=== PATIENT | female | born 1955 | race Caucasian/White ===

== ENCOUNTER 2020-04-22 09:28 | Outpatient (CLI) | payer OTHER, SELFPAY ==
--- NOTE | ~2020-04-22 | MM_ITS ---
EXAMINATION: MM screening scott BI w birgit HISTORY: Screening mammogram, family history of breast cancer in her sister. TECHNIQUE: Craniocaudal and mediolateral oblique 3-D tomosynthesis images were obtained and synthetic 2-D images were generated. CAD analysis was submitted and interpreted. COMPARISON: 03/23/2019, 07/29/2016, 07/16/2015 BREAST PARENCHYMAL COMPOSITION: The breasts are heterogeneously dense, which may obscure small masses . FINDINGS: There is no evidence of suspicious mass, calcification, or architectural distortion to sugg est malignancy in either breast. There has been no suspicious interval change. IMPRESSION: 1. No mammographic evidence of malignancy. 2. Recommend routine screening mammography in one year. BI-RADS Category 1: Negative Reviewed, dictated and finalized at location A. AS SHRINKER
== END 2020-04-22 09:29 | disposition home or self-care (01) ==
LOC: ANHIMG 09:33
PROVIDERS: PCP Internal Medicine; Visit Provider Internal Medicine
DX: Z12.31 Encounter for screening mammogram for malignant neoplasm of breast (principal)
CPT/HCPCS: 77063; 77067

== ENCOUNTER 2020-07-01 10:11 | Outpatient (CLI) | payer OTHER, SELFPAY ==
--- NOTE | ~2020-07-01 | DEXA_ITS ---
Bone Density Report Name: Maria Luz Sims Age: 65 Sex: Female Ethnicity: White Date of : 1955 Indication: postmenopausal; history of glucocorticoids; prior fracture; asthma or emphysema; Referring Provider: JASSI GUDINO Study: Bone densitometry was performed. Exam Date: July 01, 2020 Accession number: [id number] Bone Density: Region BMD T-score Z-score Classification AP Spine (L1-L4) 0.880 -1.5 0.4 Osteopenia Femoral Neck (Left) 0.716 -1.2 0.4 Osteopenia Total Hip (Left) 0.830 -0.9 0.4 Normal Total Hip Bilateral Avg 0.858 -0.7 0.6 Normal Femoral Neck (Right) 0.783 -0.6 1.0 Normal Total Hip (Right) 0.885 -0.5 0.9 Normal World Health Organization criteria for BMD impression classify patients as: Normal (T-score at or above -1.0), Osteopenia (T-score between -1.0 and -2.5), or Osteoporosis (T-score at or below -2.5). 10-year Fracture Risk: FRAX not reported because: Treated for osteoporosis Clinical Information Provided by Patient: Has had a low trauma fracture Smokes Has taken Glucocorticoids Is being treated for osteoporosis Has used the following medications: Annelise (i.e. ibandronate) Has the following medical conditions: Asthma or Emphysema Patient maximum height was 63 Menopause Age: 48 Drinks caffeinated beverages Onset of menses at age 11 Number of children 1 Impression: The patient has low bone mass, based on the Total Spine T-score. The patient has risk factors, including: smoking, previous fracture, history of glucocorticoid therapy. Discussion: It is important to ask patients whether they are taking their medications and to encourage continued and appropriate compliance with their osteoporosis therapies to reduce fracture risk. It is also important to review their risk factors and encourage appropriate calcium and vitamin D intakes, exercise, fall prevention and other lifestyle measures. Follow-Up: Consider a repeat BMD and Vertebral Fracture Assessment (VFA) exam in 2 years or sooner if medically necessary, to reassess this patient's status. Reported by: LISA on 07/01/2020 10:23:00 AM. Reviewed, dictated and finalized at location ALorraine KUMAR
== END 2020-07-01 10:12 | disposition home or self-care (01) ==
LOC: ANHIMG 10:11
PROVIDERS: PCP Internal Medicine; Visit Provider Internal Medicine
DX: Z78.0 Asymptomatic menopausal state (principal); M85.88 Other specified disorders of bone density and structure, other site; M85.852 Other specified disorders of bone density and structure, left thigh
CPT/HCPCS: 77080

== ENCOUNTER 2021-02-19 08:50 | Emergency (ER) | payer OTHER, SELFPAY ==
--- NOTE | ~2021-02-19 | XR_ITS ---
EXAMINATION: XR hand LT min 3V EXAM DATE: 02/19/2021 09:16 INDICATION: No known recent injury. Pain of the palm. TECHNIQUE: Left hand frontal, lateral and oblique projections obtained and reviewed. There is no luis or study for comparison. FINDINGS: Left metacarpal bones are unremarkable. No periosteal reaction or band of sclerosis to sug gest subacute fracture. There are no acute fractures or dislocations identified. There is no subcut aneous gas. The soft tissue is unremarkable. There are no radiopaque foreign bodies. Minimal poly articular osteoarthritis at the interphalangeal joints. 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 Reviewed, dictated and finalized at location B.
[2021-02-19 09:02] VITALS: BP 132/68; PULSE 92; RESP 16; TEMP 36.4; O2SAT 96
[2021-02-19] MEDS: KETOROLAC 30 MG/ML VIAL (*BKC) IM (09:59)
--- NOTE | 2021-02-19 10:16 | ED.GENADULT ---
HPI - General Adult General Chief complaint: Extremity Problem,Nontraumatic Stated complaint: hand pain Time Seen by Provider: 02/19/21 09:11 Source: patient Mode of arrival: ambulatory Limitations: no limitations History of Present Illness HPI narrative: Patient presents with increasing worsening pain at the base of her left hand that shoots up her wrist to her elbow. Patient reports that she saw her primary care last week regarding her discomfort and was told to wear a wrist splint and brace. Patient has not noted improvement. Patient reports that the pain wakes her up in her sleep. She denies any known injuries. She states she is prone to having trigger fingers and notes that she has arthritis in the hands as well. Patient took Motrin yesterday for the pain but has not taken anything consistently. Patient denies history of diabetes, GI bleeds or ulcers, or renal insufficiency. Related Data Home Medications Medication Instructions Recorded Confirmed omeprazole 20 mg capsule,delayed 20 mg PO DAILY 06/07/19 01/29/21 release Allergies Allergy/AdvReac Type Severity Reaction Status Date / Time No Known Allergies Allergy Verified 02/19/21 09:04 Review of Systems Review of Systems: CONSTITUTIONAL: Denies fever, chills, or sweats. EYES: Denies visual changes, redness, or discharge. ENT: Denies rhinorrhea, congestion, sore throat, or otalgia. CARDIOVASCULAR: Denies chest pain, palpitations, or edema. RESPIRATORY: Denies cough or dyspnea. GASTROINTESTINAL: Denies abdominal pain, nausea, vomiting, or diarrhea. GENITOURINARY: Denies dysuria or hematuria. SKIN: Denies rash or itching. MUSCULOSKELETAL: Reports left arm pain denies back pain, joint pain, or myalgia. NEUROLOGIC: Denies headache, numbness, dizziness, or weakness. PSYCHIATRIC: Denies anxiety or depression. [facility] Past Medical History Medical History (Updated 02/19/21 @ 10:22 by Vahid Cuello PA-C) Chronic hepatitis C without hepatic coma Vasomotor rhinitis Family History Family History Sibling Family history of liver disease Social History Social History Social History: She has returned to smoking with the recent of her . She has over a 40 pack smoking history Smoking packs per day: 0.5 Smoking cigarettes per day: 10.0 Years smoked: 40 Smoking pack-years: 20.00 Tobacco type: cigarettes (1 pack lasts a day) Second hand tobacco smoke exposure: No Alcohol intake: current Exam Narrative: GENERAL: Well-appearing, well-nourished, and in no acute distress. HEAD: Normocephalic, atraumatic. EYES: PERRLA and EOMI. ENT: Nares clear, no rhinorrhea or epistaxis. Mucous membranes moist. Oropharynx without tonsillar hypertrophy exudate or other lesions. Bilateral TMs pearly lay nonbulging NECK: Supple. No adenopathy or masses. No carotid bruits or JVD CHEST: Clear to auscultation. No respiratory distress. No wheezes rales or rhonchi HEART: Regular rate and rhythm. No murmur heard. Normal peripheral pulses. ABDOMEN: Soft, nontender, nondistended, normal active bowel sounds. EXTREMITIES: Positive Tinel's and Phalen's test. Decreased flexion and extension of digits due to pain No edema, erythema or outward signs of injury SKIN: Warm, dry, no rash. NEURO: No focal deficits. Alert and oriented x3. PSYCH: Normal mood and affect. Course Vital Signs Vital signs: Vital Signs Temperature 97.6 F 02/19/21 09:02 Pulse Rate 92 02/19/21 09:02 Respiratory Rate 16 02/19/21 09:02 Blood Pressure 132/68 02/19/21 09:02 Pulse Oximetry 96 02/19/21 09:02 Temperature 97.6 F 02/19/21 09:02 Pulse Rate 92 02/19/21 09:02 Respiratory Rate 16 02/19/21 09:02 Blood Pressure 132/68 02/19/21 09:02 Pulse Oximetry 96 02/19/21 09:02 Medical Decision Making MDM Narrative Medical decision making na
== END 2021-02-19 10:33 | disposition home or self-care (01) ==
PROVIDERS: Emergency Provider Emergency Medicine; PCP Internal Medicine
DX: M77.8 Other enthesopathies, not elsewhere classified (principal); B18.2 Chronic viral hepatitis C; F17.210 Nicotine dependence, cigarettes, uncomplicated
CPT/HCPCS: 73130; 96372; 99283; J1885

== ENCOUNTER 2021-06-17 09:33 | Outpatient (CLI) | payer OTHER, SELFPAY ==
--- NOTE | ~2021-06-17 | MM_ITS ---
EXAMINATION: MM screening scott BI w birgit HISTORY: Screening TECHNIQUE: Craniocaudal and mediolateral oblique 3-D tomosynthesis images were obtained and synthetic 2-D images were generated. CAD analysis was submitted and interpreted. COMPARISON: No prior mammogram is available for comparison at this institution. BREAST PARENCHYMAL COMPOSITION: Comparison to multiple prior studies sequentially, with oldest review ed study dated 06/12/2014. FINDINGS: There is no evidence of suspicious mass, calcification, or architectural distortion to sugg est malignancy in either breast. There has been no suspicious interval change. IMPRESSION: 1. No mammographic evidence of malignancy. 2. Recommend routine screening mammography in one year. BI-RADS Category 1: Negative Reviewed, dictated and finalized at location A. GER VALIDATION
== END 2021-06-17 09:34 | disposition home or self-care (01) ==
LOC: ANHIMG 09:35
PROVIDERS: PCP Internal Medicine; Visit Provider Internal Medicine
DX: Z12.31 Encounter for screening mammogram for malignant neoplasm of breast (principal)
CPT/HCPCS: 77063; 77067

== ENCOUNTER 2022-06-17 09:49 | Outpatient (CLI) | payer MEDICARE, SELFPAY ==
--- NOTE | 2022-06-17 11:00 | NEURO_ITS ---
Impression: # Complains of numbness of hands. # Right sensory Carpal Tunnel Syndrome. # No ulnar neuropathy. # Normal needle/EMG exam. Motor Nerve Conduction Upper Extremities Median Nerve Conduction Velocity (m/sec) Terminal Latency (msec) Response Voltage(mV) Elbow-Wrist Wrist Elbow Wrist Right 61 3.0 4 3 Left 62 3.6 5 6 Ulnar Nerve Conduction Velocity (m/sec) Terminal Latency (msec) Response Voltage(mV) Above Elbow Below Elbow Wrist Above Elbow Below Elbow Wrist Right 60 2.4 6 5 Left 61 2.5 7 9 F-Wave Latency Median (ms) Ulnar (ms) Right 26.2 25.4 Left 26.0 25.9 Sensory Nerve Conduction Upper Extremities Median Nerve Stimulation Terminal Latency (msec) Wrist/Digit Response Voltage (uV) Wrist Right 5.2/5.0 41/44 Left 3.2/3.2 38/52 Ulnar Nerve Stimulation Terminal Latency (msec) Wrist/Digit Response Voltage (uV) Wrist Right 2.1 70 Left 2.2 50 Radial Nerve Terminal Latency (msec) Response Voltage(mV) Right 1.9 30 Left 2.0 26 Left Right Muscles Examined Fibrillation Fasciculation Scarcity Voltage Duration Left Right Left Right Left Right Left Right Left Right Deltoid Biceps X X Brachioradialis Triceps X X Pronator Teres X X Ext Indicis X X Ext Digitorum X X Abd Poll Brev X X 1st Dorsal Interosseus Paraspinals MTDD
== END 2022-06-17 09:50 | disposition home or self-care (01) ==
LOC: ANHNEURO 09:49
PROVIDERS: PCP Internal Medicine; Visit Provider Family Medicine
DX: R20.2 Paresthesia of skin (principal); G56.01 Carpal tunnel syndrome, right upper limb
CPT/HCPCS: 95886; 95911

== ENCOUNTER 2022-07-28 15:40 | Outpatient (CLI) | payer MEDICARE, SELFPAY ==
--- NOTE | ~2022-07-28 | MM_ITS ---
EXAMINATION: MM screening scott BI w birgit HISTORY: Screening mammogram TECHNIQUE: Craniocaudal and mediolateral oblique 3-D tomosynthesis images were obtained and synthetic 2-D images were generated. CAD analysis was submitted and interpreted. COMPARISON: 06/17/2021, 04/22/2020, 03/13/2019 bilateral screening mammogram examinations BREAST PARENCHYMAL COMPOSITION: The breasts are heterogeneously dense, which may obscure small masses . FINDINGS: There is no evidence of suspicious mass, calcification, or architectural distortion to sugg est malignancy in either breast. There has been no suspicious interval change. IMPRESSION: 1. No mammographic evidence of malignancy. 2. Recommend routine screening mammography in one year. BI-RADS Category 1: Negative Reviewed, dictated and finalized at location A. REPAIRMAN
== END 2022-07-28 15:41 | disposition home or self-care (01) ==
LOC: ANHIMG 15:43
PROVIDERS: PCP Family Medicine; Visit Provider Family Medicine
DX: Z12.31 Encounter for screening mammogram for malignant neoplasm of breast (principal)
CPT/HCPCS: 77063; 77067

== ENCOUNTER 2023-02-15 13:43 | Outpatient (CLI) | payer MEDICARE, SELFPAY ==
--- NOTE | ~2023-02-15 | CT_ITS ---
CT Scan of the Chest without Contrast: Clinical Indication: Lung cancer screening, smoking history Technique: Contiguous sections were acquired throughout the chest without intravenous contrast. Dose reduction technique was used on this scan by utilizing automated exposure control and iterative recon struction technique. The dose-length product (DLP) was 108.26 mGy-cm. COMPARISON: 07/28/2017 Findings: There is no evidence of any significant mediastinal, hilar or axillary lymphadenopathy. There are ath erosclerotic calcifications of the aorta and coronary arteries. There is no evidence of pleural or pericardial effusion. There is a 1.2 cm left lower lobe pulmonary nodule (axial image 83). There is minimal subpleural reti culation in the lungs. Images through the upper abdomen reveal no abnormalities. Impression: Lung RADS 4A: Suspicious. Recommend either 3 month follow-up screening CT or PET/CT to further evalua te the 1.2 cm left lower lobe pulmonary nodule. Reviewed, dictated and finalized at [facility]. Impression: Lung RADS 4A: Suspicious. Recommend either 3 month follow-up screening CT or PE T/CT to further evaluate the 1.2 cm left lower lobe pulmonary nodule.
== END 2023-02-15 13:44 | disposition home or self-care (01) ==
PROVIDERS: PCP Family Medicine; Visit Provider Family Medicine
DX: Z12.2 Encounter for screening for malignant neoplasm of respiratory organs (principal); Z87.891 Personal history of nicotine dependence; R91.8 Other nonspecific abnormal finding of lung field
CPT/HCPCS: 71271

== ENCOUNTER 2023-03-22 08:35 | Outpatient (CLI) | payer MEDICARE, SELFPAY ==
--- NOTE | ~2023-03-22 | DEXA_ITS ---
Bone Density Report Name: KIRK CHEUNG Age: 67 Sex: Female Ethnicity: White Date of : 1955 Indication: osteopenia; monitoring treatment; prior fracture; asthma or emphysema; rheumatoid arthritis; postmenopausal Referring Provider: PAMELA, DAVID Study: Bone densitometry was performed. Exam Date: March 22, 2023 Accession number: [id number] Bone Density: Region BMD T-score Z-score Classification AP Spine(L1-L4) 0.926 -1.1 1.0 Osteopenia Femoral Neck (Left) 0.698 -1.4 0.4 Osteopenia Total Hip (Left) 0.843 -0.8 0.7 Normal Femoral Neck (Right) 0.760 -0.8 1.0 Normal Total Hip (Right) 0.868 -0.6 0.9 Normal Total Hip Mean 0.855 -0.7 0.8 Normal World Health Organization criteria for BMD impression classify patients as: Normal (T-score at or above -1.0), Osteopenia (T-score between -1.0 and -2.5), or Osteoporosis (T-score at or below -2.5). 10-year Fracture Risk: FRAX not reported because: Treated for osteoporosis Previous Exams: Region Exam Age BMD T-score BMD Change BMD Change Date g/cm2 vs Baseline vs Previous AP Spine (L1-L4) 03/22/2023 67 0.926 -1.1 0.046 (5.3%)# 0.046 (5.3%)# 07/01/2020 65 0.880 -1.5 Total Hip(Left) 03/22/2023 67 0.843 -0.8 0.013 (1.6%)# 0.013 (1.6%)# 07/01/2020 65 0.830 -0.9 Total Hip(Right) 03/22/2023 67 0.868 -0.6 -0.018 (-2.0%) -0.018 (-2.0%) 07/01/2020 65 0.885 -0.5 *Denotes significance at 95% confidence level, LSC for AP Spine = 0.022 g/cm2, LSC for Total Hip = 0.027 g/cm2 # Denotes dissimilar scan types or analysis methods Clinical Information Provided by Patient: Has had a low trauma fracture Has rheumatoid arthritis Is being treated for osteoporosis Has used the following medications: Boniva (i.e. ibandronate), Vitamin D Has the following medical conditions: Asthma or Emphysema Patient maximum height was 63 Menopause Age: 48 No regular weight bearing exercise Onset of menses at age 11 Number of children 1 Impression: The patient has low bone mass, based on the Left Femoral Neck T-score. The patient has risk factors, including: previous fracture. No significant bone loss was observed. Discussion: PATIENT UNDER TREATMENT WITH NO SIGNIFICANT BMD LOSS SINCE LAST EXAM. In an untreated patient, BMD typically declines with age. A lack of decline or gain is usually a sign that treatment is efficacious and fracture risk is reduced. It is important to ask patients whethe
== END 2023-03-22 08:36 | disposition home or self-care (01) ==
PROVIDERS: PCP Family Medicine; Visit Provider Nurse Practitioner Family
DX: M81.0 Age-related osteoporosis without current pathological fracture (principal); M85.88 Other specified disorders of bone density and structure, other site; M85.852 Other specified disorders of bone density and structure, left thigh
CPT/HCPCS: 77080

== ENCOUNTER 2023-05-13 07:09 | Outpatient (CLI) | payer MEDICARE, SELFPAY ==
--- NOTE | ~2023-05-13 | CT_ITS ---
CT Scan of the Chest without Contrast: Clinical Indication: Lung mass Technique: Contiguous sections were acquired throughout the chest without intravenous contrast. Dose reduction technique was used on this scan by utilizing automated exposure control and iterative recon struction technique. The dose-length product (DLP) was 215.17 mGy-cm. COMPARISON: 02/15/2023 Findings: There is no evidence of any significant mediastinal, hilar or axillary lymphadenopathy. There are ath erosclerotic calcifications of the aorta and coronary arteries. There is no evidence of pleural or pericardial effusion. There is mild diffuse subpleural reticulation. 1 cm left lower lobe pulmonary nodule is similar to pr ior exam (axial image 83). Images through the upper abdomen reveal no abnormalities. Impression: 1 cm left lower lobe pulmonary nodules unchanged from prior exam. Continued follow-up advised. Mild diffuse subpleural reticulation. Reviewed, dictated and finalized at [facility]. GER FIXER Impression: 1 cm left lower lobe pulmonary nodules unchanged from prior exam. Continued fol low-up advised. Mild diffuse subpleural reticulation.
== END 2023-05-13 07:10 | disposition home or self-care (01) ==
LOC: ANHIMG 07:13
PROVIDERS: PCP Family Medicine; Visit Provider Family Medicine
DX: R91.8 Other nonspecific abnormal finding of lung field (principal)
CPT/HCPCS: 71250

== ENCOUNTER 2023-12-13 09:40 | Outpatient (CLI) | payer MEDICARE, SELFPAY ==
--- NOTE | ~2023-12-13 | MM_ITS ---
EXAMINATION: MM screening scott BI w birgit HISTORY: Screening TECHNIQUE: Craniocaudal and mediolateral oblique 3-D tomosynthesis images were obtained and synthetic 2-D images were generated. CAD analysis was submitted and interpreted. COMPARISON: Comparison to multiple prior studies sequentially, with oldest reviewed study dated 07/16. BREAST PARENCHYMAL COMPOSITION: Dense: The breasts are heterogeneously dense, which may obscure small masses FINDINGS: The left breast is stable without evidence for malignancy. There are developing asymmetries centered in the upper outer quadrant of the right breast. There are no suspicious calcifications. IMPRESSION: 1. Developing asymmetries centered upper outer quadrant of the right breast, middle third. 2. Additional mammographic views and possible breast ultrasound are recommended. BI-RADS Category 0: Incomplete: Needs additional imaging evaluation. Reviewed, dictated and finalized at location B. IMPRESSION: 1. Developing asymmetries centered upper outer quadrant of the right breast, mi ddle third. 2. Additional mammographic views and possible breast ultrasound are recommended . BI-RADS Category 0: Incomplete: Needs additional imaging evaluation.
== END 2023-12-13 09:41 | disposition home or self-care (01) ==
LOC: ANHIMG 09:41
PROVIDERS: PCP Family Medicine; Visit Provider Family Medicine
DX: Z12.31 Encounter for screening mammogram for malignant neoplasm of breast (principal); R92.8 Other abnormal and inconclusive findings on diagnostic imaging of breast
CPT/HCPCS: 77063; 77067

== ENCOUNTER 2023-12-27 12:58 | Outpatient (CLI) | payer MEDICARE, SELFPAY ==
--- NOTE | ~2023-12-27 | MMUS_ITS ---
EXAMINATION: MM diagnostic scott RT w birgit, US breast RT complete HISTORY: Follow-up right breast asymmetry TECHNIQUE: Additional 3-D tomosynthesis images of the right breast were performed and synthetic 2-D i mages were generated. CAD analysis was submitted and interpreted. High resolution complete right valeria st ultrasound was performed. COMPARISON: Comparison to multiple prior studies sequentially, with oldest reviewed study dated 07/29. BREAST PARENCHYMAL COMPOSITION: Dense: The breasts are heterogeneously dense, which may obscure small masses FINDINGS: MAMMOGRAPHIC FINDINGS: There are no suspicious masses, calcifications or architectural distortion in the right breast to sug gest malignancy. ULTRASOUND: Complete US of all 4 quadrants of the right breast and retroareolar region was reviewed. Normal heter ogeneous echotexture without focal solid or cystic mass. IMPRESSION: 1. No evidence for malignancy in the right breast. 2. Routine yearly screening mammogram and regular clinical breast examination are recommended. BI-RADS Category 1: Negative Reviewed, dictated and finalized at location B. IMPRESSION: 1. No evidence for malignancy in the right breast. 2. Routine yearly screening mammogram and regular clinical breast examination a re recommended. BI-RADS Category 1: Negative
== END 2023-12-27 12:59 | disposition home or self-care (01) ==
LOC: ANHIMG 13:09
PROVIDERS: PCP Family Medicine
DX: R92.8 Other abnormal and inconclusive findings on diagnostic imaging of breast (principal)
CPT/HCPCS: 76641; 77061; 77065; G0279

== ENCOUNTER 2024-05-18 07:04 | Outpatient (CLI) | payer MEDICARE, SELFPAY ==
--- NOTE | ~2024-05-18 | MR_ITS ---
EXAMINATION: MR brain/brain stem wo con DATE: 05/18/2024 07:46 INDICATION: Memory loss and gait disorder TECHNIQUE: Magnetic resonance imaging (MRI) of the brain and brainstem was performed without intraven ous contrast. Sequences included sagittal and axial T1-weighted SE, axial diffusion-weighted FS SE, a xial 3D SWAN, axial T2-weighted FLAIR, and axial T2-weighted FSE. Postcontrast axial and coronal T1-w eighted SE was obtained. Apparent diffusion coefficient (ADC) maps were created. COMPARISON: None. FINDINGS: There are no areas of restricted diffusion to suggest acute infarction. No intracranial hemorrhage or abnormal intracranial mass lesion. There are scattered areas of nonspecific increased T2-weighted si gnal intensity in the cerebral white matter, predominantly involving the deep and periventricular whi te matter. There are no intraparenchymal signal abnormalities seen on the other pulse sequences. The ventricles are symmetric and normal in size. There are no abnormal extra-axial fluid collections. Dar w voids are seen in the cerebral arteries on the T2-weighted sequences consistent with their expected patency. Visualized orbits and soft tissues are unremarkable. Mild mucosal thickening the ethmoid si nuses. IMPRESSION: 1. No acute intracranial process. 2. Moderate scattered nonspecific white matter T2 hyperintensity which is within normal limits for ag e and likely sequela of chronic small vessel ischemic disease. Reviewed, dictated and finalized at location A. GER OF CASE MANAGEMENT IMPRESSION: 1. No acute intracranial process. 2. Moderate scattered nonspecific white matter T2 hyperintensity which is withi n normal limits for age and likely sequela of chronic small vessel ischemic dis ease.
== END 2024-05-18 07:05 | disposition home or self-care (01) ==
PROVIDERS: PCP Internal Medicine; Visit Provider Nurse Practitioner Gerontology
DX: R26.9 Unspecified abnormalities of gait and mobility (principal); R90.82 White matter disease, unspecified
CPT/HCPCS: 70551

== ENCOUNTER 2024-09-08 18:20 | Observation (INO) | payer MEDICARE, SELFPAY ==
[2024-09-08] VITALS (14 sets, daily range): BP systolic 118–150; BP diastolic 68–80; PULSE 74–86; RESP 13–20; TEMP 36.4; O2SAT 81–100
--- NOTE | ~2024-09-08 | XR_ITS ---
HISTORY: right hip pain . History from the EMR: Sharp pain in her left hip when lying on her left side. Personal history of rhe umatoid arthritis. COMPARISON: Reference is made to a CT examination of the abdomen and pelvis less than 24 hours earli er. Query intermittent trauma (?) causing a possible change in the imaging evaluation. TECHNIQUE: 2 views of the bilateral hips along with an AP view of the pelvis FINDINGS: No acute fracture or dislocation is identified. Superior lateral sclerosis of the femoral acetabular joint space is present consistent with osteoarth ritis. Normal mineralization. IMPRESSION: Degenerative disease without acute fracture or dislocation. Reviewed, dictated and finalized at location A.
--- NOTE | ~2024-09-08 | CT_ITS ---
CT abdomen pelvis w con Ordering provider: Sunita Chowdhury MD History: 69 years Female with . R low back/flank pain into RLQ pain . Comparison: None. Technique: CT abdomen and pelvis with IV and without oral contrast. Automated exposure control and it erative reconstruction technique were employed. The dose-length product was 755.90 mGy-cm. 100 mL Omn ipaque 350 was given IV. Findings: VISUALIZED LOWER CHEST: Underlying emphysematous and fibrotic changes. The UPPER ABDOMINAL ORGANS: Liver: Fat infiltration. Gallbladder: Normal. Spleen: Normal. Stomach/duodenum: Normal. Pancreas: Normal. Adrenals: Tiny left adrenal adenoma measuring 9 mm. No follow-up is advised unless clinically recomme nded. Kidneys: Bilateral tiny renal cysts with the largest in the right kidney upper pole measuring 1.1 cm. . PELVIC ORGANS: The bladder is normal. BOWEL AND MESENTERY: Colon: No evidence of diverticulitis. Fecal material is loaded in the colon. Normal appendix. Small Bowel: Normal. No obstruction. Peritoneum/mesentery: No free air or free fluid. No mesenteric lymphadenopathy. RETROPERITONEUM: Mild atheromatous disease of the abdominal aorta. No retroperitoneal lymphadenopat hy. MUSCULOSKELETAL: Superficial soft tissues: The superficial soft tissues are normal. Bones: Age appropriate degenerative changes of the spine. IMPRESSION: 1. No evidence of appendicitis, diverticulitis or intestinal obstruction. 2. Constipation. 3. Bilateral renal tiny cysts. Reviewed, dictated and finalized at location A.
--- OUTSIDE RECORDS SUMMARY | 2024-09-08 18:23 | XMS_ITS | Clinical Summary ---
Author Organization [facility] Address [address] [place] [address] Care Team Providers Care Wire Weaving Loom Setter Name Role Phone Donna Her NP Primary Care Provider Allergies No known active allergies Medications albuterol HFA (PROVENTIL HFA,VENTOLIN HFA,PROAIR HFA) 90 mcg/actuation inhaler 01/28/20 23 Active alendronate (FOSAMAX) 70 mg tablet TAKE 1 TABLET BY MOUTH ONE TIME PER WEEK 11/12/19 23 Active buPROPion XL (WELLBUTRIN XL) 300 mg 24 hr tablet Take 1 tablet (300 mg total) by mouth daily 12/14/19 23 Active celecoxib (CeleBREX) 200 mg capsule 01/28/20 23 Active Breo Ellipta 200-25 mcg/dose diskus inhaler INHALE 1 PUFF ONCE DAILY 01/28/20 23 Active ipratropium-albute roL (DUO-NEB) 0.5-2.5 mg/3 mL nebulizer solution USE 1 AMPULE IN NEBULIZER EVERY 4 HOURS NEEDED FOR SHORTNESS OF BREATH OR WHEEZING 01/13/20 23 Active metFORMIN XR (GLUCOPHAGE XR) 500 mg 24 hr tablet Take 1 tablet (500 mg total) by mouth 2 (two) times a day 01/23/20 23 Active phentermine (ADIPEX-P) 37.5 mg tablet Take 1 tablet (37.5 mg total) by mouth daily 01/13/20 23 Active cetirizine (ZyrTEC) 5 mg tablet Take 1 tablet (5 mg total) by mouth daily Active HYDROcodone-acetam inophen (NORCO) 5-325 mg per tablet Take by mouth every 6 (six) hours as needed Active ondansetron ODT (ZOFRAN-ODT) 8 mg disintegrating tablet DISSOLVE 1 TABLET ON THE TONGUE EVERY 4-6 HOURS NEEDED Active triamcinolone (KENALOG) 40 mg/mL injection Take 40 mg by injection route. 11/19/19 23 Active upadacitinib (Rinvoq) 15 mg tablet extended release 24 hr Take 15 mg by mouth appeals and generalist clerk before breakfast 30 tablet 6 09/20/19 24 Active Additional Information Patient not taking.Reported on 08/08/2024 Ozempic 0.25 mg or 0.5 mg (2 mg/3 mL) pen injector injection 11/24/19 24 Active ondansetron ODT (ZOFRAN-ODT) 4 mg disintegrating tablet 03/22/20 24 Active methotrexate 2.5 mg tablet TAKE 8 TABLETS BY MOUTH ONCE A WEEK 32 tablet 3 06/27/19 25 Active folic acid (FOLVITE) 1 mg tablet Take 2 tablets by mouth once daily 180 tablet 07/05/19 25 Active hydroxychloroquine (PLAQUENIL) 200 mg tablet Take 2 tablets by mouth once daily 60 tablet 2 08/09/19 25 Active Active Problems Problem Noted Date Diagnosed Date Memory disturbance 04/19/2024 Gait disorder 04/19/2024 History of hepatitis C 02/02/2023 Overview (02/02/2023): Treated by Dr Hunter Pulmonary emphysema 02/02/2023 Seropositive rheumatoid arthritis 02/02/2023 Encounters Date Type Department Care Team Description 08/08/2024 12:55 PM HANDLE ROUNDER OPERATOR Lab [facility] Endocrinology Metabolism and Lipid [address] [place] [address] [place] [address] Rheumatoid arthritis, involving unspecified site, unspecified whether rheumatoid factor present (HCC); High risk medication use 08/08/2024 11:00 AM HANDLE ROUNDER OPERATOR Office Visit [facility] Rheumatology [address] [place] [address] [place] [address] Marti Gaspar MD Rheumatoid arthritis, involving unspecified site, unspecified whether rheumatoid factor present (HCC) (Primary Dx); High risk medication use from Last 3 Months Immunizations Immunization Administration Dates Next Due Influenza, Quadrivalent, Hig h Dose, Preservative Free, Intrr 03/16/2023 Surgical History Surgery Date Site/Laterality Comments TRIGGER FINGER RELEASE 06/06/1997 - 06/05/[address] Taylor- Index finger LEG TENDON SURGERY 06/06/2011 - 06/05/[address] Blanc CARPAL TUNNEL RELEASE 06/06/2022 - 06/05/[address] Guerra Medical History Medical History Date Comments Emphysema of lung (HCC) Asthma Dry mouth Fatigue Rheumatoid arthritis (HCC) Family History Medical History Relation Name Comments Lung disease Daughter Family history of lung disease - (Added by TW Conv) Arthritis Father Family history of arthritis - (Added by TW Conv) Cancer Father Family history of malignant neoplasm - (Added by TW Conv) Lung disease Father Family history of lung disease - (Added by TW Conv) Arthritis Mother Family history of arthritis - (Added by TW Conv) Cancer Mother Family history of malignant neoplasm - (Added by TW Conv) Hypertension Mother Family history of hypertension - (Added by TW Conv) Lung disease Mother Family history of lung disease - (Added by TW Conv) Cancer Other Family history of malignant neoplasm - (Added by TW Conv) Lung disease Other Family history of lung disease - (Added by TW Conv) Relation Name Status Comments Daughter Father Mother Other Social History Tobacco Use Types Packs/Day Years Used Date Smoking Tobacco: Former Cigarettes Q uit: 11/02/2022 Tobacco Cessation:Counseling Given: Not Answered Comments Unknown Sex and Gender Information Value Date Recorded Sex Assigned at Not on file Legal Sex Female 8:25 AM HANDLE ROUNDER OPERATOR Gender Identity Not on file Sexual Orientation Not on file Obstetrics History Last Filed Vital Signs Vital Sign Reading Time Taken Comments Blood Pressure 131/81 08/08/2024 11:03 AM HANDLE ROUNDER OPERATOR Pulse 93 08/08/2024 11:03 AM HANDLE ROUNDER OPERATOR Temperature 36.7 C (98.1 F) 09/07/2023 9:51 AM CDT Respiratory Rate - - Oxygen Saturation 96% 02/08/2024 10:49 AM CDT Inhaled Oxygen Concentration - - Weight 79.8 kg (176 lb) 08/08/2024 11:03 AM HANDLE ROUNDER OPERATOR Height 160 cm (5' 3 ) 08/08/2024 11:03 AM HANDLE ROUNDER OPERATOR Body Mass Index 31.18 08/08/2024 11:03 AM HANDLE ROUNDER OPERATOR Plan of Treatment Health Maintenance Due Date Last Done Comments Breast Cancer Screening-Mammogram 1953 Colon Cancer Screening-Colonoscopy 1955 Depression Screening 1953 Fall Risk Assessment 1955 Osteoporosis Screening-Bone Density Scan 1953 DTaP/Tdap/Td Vaccine (1 - Tdap) 1964 Hepatitis B Screening 1971 Well Visit 65+ 2018 Covid-19 Vaccine (4 - 2023-2 5 season) 2024 04/13/2021, 08/04/2020, 07/07/2020 Influenza Vaccine (#1) 2024 , 02/23/2022, 03/07/2020, Additional history exists Zoster Vaccine Completed 07/10/2019, 03/07, 03/12/2017 Pneumococcal vaccine 65+ Completed 10/24/2019, 09/04 Hepatitis C Screening Completed 02/02/2023, 023 Procedures Procedure Name Priority Date/Time Associated Diagnosis Comments COMPREHENSIVE METABOLIC PANEL Routine 08/08/2024 11:33 AM HANDLE ROUNDER OPERATOR Rheumatoid arthritis, involving unspecified site, unspecified whether rheumatoid factor present (HCC) High risk medication use CBC WITH AUTO DIFFERENTIAL Routine 08/08/2024 11:33 AM HANDLE ROUNDER OPERATOR Rheumatoid arthritis, involving unspecified site, unspecified whether rheumatoid factor present (HCC) High risk medication use HEPATITIS C RNA, QUANTITATIVE, PCR Routine 02/02/2023 1:01 PM CDT Rheumatoid arthritis, involving unspecified site, unspecified whether rheumatoid factor present (HCC) Vitamin D deficiency from Last 3 Months or Most Recently Relevant to Health Maintenance Results * (ABNORMAL) CBC with auto differential (08/08/2024 11:33 AM HANDLE ROUNDER OPERATOR) White Blood Count 6.4 3.6 - 11.2 K/uL [facility] RBC 3.57(L) 3.63 - 4.92 M/uL [facility] Hemoglobin 11.9 11.9 - 15.5 g/dL [facility] Hematocrit 35.8(L) 36.1 - 44.3 % [facility] MCV 100.2(H) 80.0 - 97.6 fL [facility] MCH 33.4 26.7 - 33.7 pg [facility] MCHC 33.3 32.7 - 35.5 g/dL [facility] RBC Dist Width 14.6 12.3 - 17.0 % [facility] Platelet Count 276 140 - 440 K/uL [facility] MPV 8.1 6.8 - 10.4 fL [facility] Neutrophils % 70.4 38.7 - 74.5 % [facility] Lymphocyte % 16.3(L) 20.0 - 54.3 % [facility] Monocytes % 10.4 4.3 - 13.5 % [facility] Eosinophils % 2.0 0.0 - 6.0 % [facility] Basophil % 0.9 0.0 - 3.0 % [facility] Absolute Neutrophil 4.5 1.8 - 6.6 K/uL [facility] Absolute Lymphocyte 1.0 0.8 - 3.3 K/uL [facility] Absolute Monocyte 0.7 0.2 - 1.2 K/uL [facility] Absolute Eosinophil 0.1 0.0 - 0.5 K/uL [facility] Absolute Basophil 0.1 0.0 - 0.2 K/uL [facility] Nucleated RBC % 0.1 0.0 - 0.4 /100 WBC [facility] Blood 08/08/2024 11:3 3 AM HANDLE ROUNDER OPERATOR 08/08/2024 12:47 PM HANDLE ROUNDER OPERATOR us Marti Gaspar MD LAB BLOOD ORDERABLES Final Result [facility] * (ABNORMAL) Comprehensive metabolic panel (08/08/2024 11:33 AM HANDLE ROUNDER OPERATOR) Total Protein 7.5 6.1 - 8.4 g/dL [facility] Albumin 4.3 3.5 - 5.2 g/dL [facility] Calcium 10.0 8.6 - 10.3 mg/dL [facility] BUN 25(H) 7 - 23 mg/dL [facility] Total Bilirubin 0.16(L) 0.20 - 1.40 mg/dL [facility] Comment:Repeated and Verifie d Alk Phos, Total 94 35 - 129 IU/L [facility] AST (SGOT) 30 11 - 47 IU/L [facility] ALT (SGPT) 30 6 - 53 IU/L [facility] Creatinine 0.71 0.60 - 1.10 mg/dL [facility] Sodium 139 135 - 145 mmol/L [facility] Potassium 4.7 3.3 - 5.1 mmol/L [facility] Chloride 102 95 - 107 mmol/L [facility] CO2 Content 27 21 - 29 mmol/L [facility] Glucose 92 64 - 99 mg/dL [facility] Comment: NONFASTING GLUCOSE RANGE = 64-199 mg/dL FASTING GLUCOSE 64 - 99 = NORMAL FASTING GLUCOSE 100 - 125 = IMPAIRED FASTING GLUCOSE FASTING GLUCOSE >=126 = PROVISIONAL DIAGNOSIS OF DIABETES eGFR >90.0 >60.0 mL/min/1.7 3 m2 [facility] Blood 08/08/2024 11:3 3 AM HANDLE ROUNDER OPERATOR 08/08/2024 12:47 PM HANDLE ROUNDER OPERATOR Marti Gaspar MD LAB BLOOD ORDERABLES Final Result [facility] * Hepatitis C (HCV) RNA PCR, quantitative Blood (02/02/2023 1:01 PM CDT) [facility] HCV RNA result Not Detected [facility] Comment: The quantifiable range of this assay is 15 IU/mL to 100,000,000 IU/mL (1.18 log IU/mL to 8.00 log IU/mL). Testing was performed by the [id number] HCV Test ([employer] Testing performed at [facility] Current Interpretive Data was last revised on 2021 Blood 02/02/2023 1:01 PM CDT 02/02/2023 1:22 PM CDT us Marti Gaspar MD LAB MICROBIOLOGY - GENERAL ORDERABLES Final Result [facility] Department [place] [address] [facility] from Last 3 Months or Most Recently Relevant to Health Maintenance Insurance [facility] MEDICARE [facility] TNA MEDICARE [facility] Care Teams Wire Weaving Loom Setter Relationship Specialty Start Date End Date Donna Her NP [address] [place] [id number] PCP - General Family Medicine 04/03/24
--- OUTSIDE RECORDS SUMMARY | 2024-09-08 18:23 | XMS_ITS | CONTINUITY OF CARE DOCUMENT ---
Author Name pau mai Address Unknown Organization [facility] Address [address] [place] [address] [address] [place] [address] Phone [phone] Care Team Providers Care Architect In Training Name Role Phone pau mai Unavailable Unavailable INSURANCE PROVIDERS Payer name Policy type / Coverage type Jhonathan red green party ID [id number] OPEN ACCESS/PPO Other [id number]
--- OUTSIDE RECORDS SUMMARY | 2024-09-08 18:23 | XMS_ITS | Data Portability ---
Author Organization [place] [facility], Main Office Address [address] [place] [address] Assessment No assessment recorded. Plan of Treatment Reminders Order Date Submit Date Provider Last Modified By Organization Details Last Modified Time Details Appointments None recorded. Lab glycohemogl obin, total, blood [address] (Lab), [address] [place], [address], 4 10:36:12 BMP, serum or plasma [address] (Lab), [address] [place], [address], 4 10:36:24 glycohemogl obin, total, blood [address] [facility] (Lab), [address] [place], [address], 3 20:25:17 BMP, serum or plasma [address] [facility] (Lab), [address] [place], [address], 3 19:29:05 Referral neurologist referral - Please call patient to schedule an appointment with Dr. Xavier. Thank you. 2023 024 [facility] [address], [place], [address], 4 10:32:[address] referral - Please call patient to schedule an appointment . Thank you. 2023 [email or web address] Courtney Melo MD (Dermatology) , [address], [facility], [place], [address], 08:34:12 Procedures None recorded. Surgeries None recorded. Imaging CT, head + brain, w/o contrast - *Denied* [address] [place] [address] (Imaging), [address] [facility] [address], [place], [address], 12:25:58 Medication Orders ondansetron 4 mg disintegrat ing tablet 2023 [facility], [address] [place], [address], 10:25:41 metformin ER 500 mg tablet,exte nded release 24 hr 2023 [facility], [address] [facility], [place], [address], 4 10:25:43 phentermine 37.5 mg tablet 2023 [facility], [address] [place], [address], 4 10:18:26 Ozempic 0.25 mg or 0.5 mg (2 mg/3 mL) subcutaneou s pen injector 2023 024 [id number], [address], [place], [place], [phone], 13:32:27 metformin ER 500 mg tablet,exte nded release 24 hr 2022 023 [id number], [address] [place], [place], [phone], 10:15:40 Patient TargetsNo targets recorded. Patient InstructionsNo instructions recorded. Reason for Referral Non Licensed Operator Referral for S kin lesion abnormal mole to middle back, right inner thigh Please call patient to schedule an appointment. Thank you. Referring Physician: Reji Reece, [facility], Encounter Date: 12/27/2023 Neurologist Referral for Mem ory impairment Please call patient to schedule an appointment with Dr. Xavier. Thank you. Referring Physician: Donna Her [facility], Encounter Date: 03/22/2024 Results Created Date Observation Date Name Description Value Unit Range Abnormal Flag Note LastModifiedBy Organization Detail LastModifiedTime 03/28/2003/28/2023 BASIC METAB OLIC PANEL sodium 137 mmol/ L 137-14 5 Not Available [facility] (Lab) [address] [place], [address], 03/28/2023 19:29:05 03/28/2003/28/2023 BASIC METAB OLIC PANEL potassium 4.5 mmol/ L 3.5-5. 1 Not Available [facility] (Lab) [address] [place], [address], 03/28/2023 19:29:05 03/28/2003/28/2023 BASIC METAB OLIC PANEL chloride 104 mmol/ L 98-107 Not Available [facility] (Lab) [address] [place], [address], 03/28/2023 19:29:05 03/28/2003/28/2023 BASIC METAB OLIC PANEL carbon dioxide 26 mmol/ L 22-30 Not Available [facility] (Lab) [address] [place], [address], 03/28/2023 19:29:05 03/28/2003/28/2023 BASIC METAB OLIC PANEL anion gap 11.5 mmol/ L 14-22 low Not Available [facility] (Lab) [address] [place], [address], 03/28/2023 19:29:05 03/28/2003/28/2023 BASIC METAB OLIC PANEL glucose 103 mg/dL 70-99 high Not Available [facility] (Lab) [address] [place], [address], 03/28/2023 19:29:05 03/28/2003/28/2023 BASIC METAB OLIC PANEL BUN 22 mg/dL 8-19 high Not Available [facility] (Lab) [address] [place], [address], 03/28/2023 19:29:05 03/28/2003/28/2023 BASIC METAB OLIC PANEL creatinine 0.68 mg/dL 0.66-1 .25 Not Available [facility] (Lab) [address] [place], [address], 03/28/2023 19:29:05 03/28/2003/28/2023 BASIC METAB OLIC PANEL GFR >60 Refer ence Range : [place] ge GFR Healt hy Adult : >60 mL/mi n/1.7 3 m2 Chron ic Kidne y Disea se: 15-60 mL/mi n/1.7 3 m2 Kidne y Failu re: <15/m L/min /1.73 m2 www.n iddk. nih.g ov The MDRD study equat ion has not been valid ated in child emily <18 years of age; pregn ant women ; the elder ly >85 years of age; or in some racia l or ethni c subgr oups, such as Hispa nics. Outsi de the valid ated claudio eters , estim ated GFR is less accur ate, requi ring clini alejandra judgm ent on a case- by-ca se basis . Clini alejandra inter preta tion for other races and ages must be made by the clini christina. The MDRD study equat ion has not been valid ated for the evalu ation of serum creat inine relat ed to nutri killian l statu s or medic ation usage . For perso ns <18 years of age, a pedia tric GFR calcu lator is avail able on the F websi te: https ://andi hawkins.davida reyez/pr ofess ional s/kdo qi/gf r_cal culat or Not Available [facility] (Lab) [address] [place], [address], 03/28/2023 19:29:05 03/28/2003/28/2023 BASIC METAB OLIC PANEL calcium 10.1 mg/dL 8.4-10 .2 Not Available [facility] (Lab) [address] [place], [address], 03/28/2023 19:29:05 03/28/2003/28/2023 HEMOG LOBIN A1C HA1C 6.0 % 4.0-6. 0 Diabe julio Scree jose Crite marty: <5.7% Consi stent with absen ce of diabe julio 5.7-6 .4% Consi stent with incre ased risk for diabe julio (pred iabet es) >OR=6 .5% Consi stent with diabe julio REFER ENCE: Diabe julio Care 2016, 39(Rodriguez ppl.1 ):s13 -s22 Not Available [facility] (Lab) [address] [place], [address], 03/28/2023 20:25:16 07/05/19 24 07/05/2023 COLOG UARD cologuard result reportable NEGATI VE negati ve normal NEGAT ED TEST RESUL T. A negat ed Colog uard resul t indic ates a low likel ihood that a color ectal cance r (CRC) or advan gonzález adeno ma (jaylen omato us polyp s with more advan gonzález pre-m align ant featu res) is prese nt. The chanc e that a perso n with a negat ed Colog uard test has a color ectal cance r is less than 1 in 1500 (nega tive predi ctive value >99.9 %) or has an advan gonzález adeno ma is less than 5.3% (nega tive predi ctive value 94.7% ). These data are based on a prosp ectiv e cross -sect ional study of 10,00 0 indiv idual s at ortley ge risk for color ectal cance r who were scree avery with both Colog uard and colon oscop y. (Kely Valdez. et al, N Engl J Med 2014; 370(1 4):12 86-12 97) The carmen l value (refe rence range ) for this assay is negat ed. COLOG UARD RE-SC REENI NG RECOM MENDA TION: Perio dic color ectal cance r scree jose is an impor tant part of preve ntive healt hcare for asymp tomat ic indiv idual s at ortley ge risk for color ectal cance r. Follo wing a negat ed Colog uard resul t, the Ameri can Cance r Socie ty and U.S. Multi -Soci ety Task Force scree jose guide lines recom mend a Colog uard re-sc reeni ng inter roselia of 3 years . Refer ences : Ameri can Cance r Socie ty Guide line for Color ectal Cance r Scree jose: https ://andi w.can cer.o rg/ca ncer/ colon -rect al-ca ncer/ detec tion- diagn osis- stagi ng/ac s-rec ommen datio ns.ht ml.; Albert GERARDO, Kye LIEBERMAN, Darya CARTER, Color ectal Cance r Scree jose: Recom menda tions for Physi cians and Patie nts from the U.S. Multi -Soci ety Task Force on Color ectal Cance r Scree jose , Valeria moreno rolog y 2017; 112:1 016-1 030. TEST DESCR IPTIO N: [place] site algor ithmi c roger sis of stool DNA-b iomar kers with hemog lobin immun oassa y. Quant itati ve value s of indiv idual bioma rkers are not repor table and are not assoc iated with indiv idual bioma rker resul t refer ence range s. Colog uard is inten ded for color ectal cance r scree jose of adult s of eithe r sex, 45 years or older , who are at [facility] for color ectal cance r (CRC) . Colog uard has been appro humera for use by the U.S. FDA. The perfo rmanc e of Colog uard was estab lishe d in a cross secti onal study of [facility] adult s aged 50-84 . Colog uard perfo rmanc e in patie nts ages 45 to 49 years was estim ated by sub-g roup roger sis of near- age group s. Colon oscop ies perfo rmed for a posit ed resul t may find as the most clini masha signi fican t lesio n: color ectal cance r [4.0% ], advan gonzález adeno ma (incl uding sessi le maurice dulce polyp s great er than or equal to 1cm diame ter) [20%] or non- advan gonzález adeno ma [31%] ; or no color ectal neopl doreen [45%] . These estim ates are deriv ed from a prosp ectiv e cross -sect ional scree jose study of 0 indiv idual s at [facility] risk for color ectal cance r who were scree avery with both Colog uard and colon oscop y. (Kely Farah et al, N Engl J Med 2014; 370(1 4):12 86-12 97.) Colog uard may produ ce a false negat ed or false posit ed resul t (no color ectal cance r or preca ncero us polyp prese nt at colon oscop y follo w up). A negat ed Colog uard test resul t does not guara ntee the absen ce of CRC or advan gonzález adeno ma (pre- cance r). The curre nt Colog uard scree jose inter roselia is every 3 years . (Amer ican Cance r Socie ty and U.S. Multi -Soci ety Task Force ). Colog uard perfo rmanc e data in a 0 patie nt pivot al study using colon oscop y as the refer ence metho d can be acces sed at the follo wing locat ion: www.e xactl abs.c om/re crystal . Addit ional descr iptio n of the Colog uard test proce ss, warni ngs and preca ution s can be found at www.c ologu nathan.c om. Not Available [facility] (Cologuard Orders Only) [address], [place], [address], 07/14/2023 10:37:51 02/17/20 23 02/15/2023 LDCT, chest , for lung cance r scree jose No observ ation record ed. [address] [address], [place], [address], 02/24/2023 09:39:52 03/22/2003/22/2023 DEXA No observ ation record ed. [email or web address] [address] [address], [place], [address], 10/14/2023 10:48:06 03/22/2003/22/2023 DEXA No observ ation record ed. [address] [address], [place], [address], 04/12/2023 14:32:46 05/13/2005/13/2023 CT, chest , w/o contr ast No observ ation record ed. [email or web address] [address] [facility], [place], [address], 05/19/2023 17:54:59 12/27/1912/27/2023 MAMMO , diagn ostic , digit al, bilat eral No observ ation record ed. [email or web address] [address] [address], [place], [address], 12/28/2023 09:22:25 12/05/18/2024 MRI, brain + brain stem, w/o contr ast No observ ation record ed. [email or web address] [facility] [address], [place], [address], 05/18/2024 19:23:05 Result Notes None recorded. Problems Name Problem SNOMED Code Status Onset Date Resolution Date Notes Provider Name and Address Organization Details Recorded Time Chronic obstructiv e pulmonary disease 99634088 Active 2021 Not Available [facility] 3 12:49:03 Acquired trigger finger 7127835 Active Not Available [facility] 3 12:49:03 Asthma 095421420 Active 2021 Not Available [facility] 3 12:49:03 Osteopenia 366689379 Active 2021 Not Available [facility] 3 12:49:03 Rheumatoid arthritis 45168963 Active 2021 Not Available [facility] 3 12:49:03 Pain in limb 59374764 Active Not Available [facility] 3 12:49:03 Pain of right wrist 0635630559815 00 Active 2022 NELY Amos null, [facility] [employer] 3 12:11:51 Carpal tunnel syndrome of right wrist 1055139361737 08 Active 2022 NELY Amos null, [place] [facility] [employer] 3 12:12:00 Bilateral carpal tunnel syndrome 8273016492737 9101 Active 2022 NELY Colin null, [facility] [employer] 3 14:19:47 Osteoporos is 26828862 Active 2022 Jacklyn Dasilva MD [address], [facility] [address], [place], [address] , [employer] [facility] [employer] 3 13:55:51 Mood disorder 47239117 Active 2022 GUANAKITO Morales [address], [address], [place], [address] , [employer] 3 09:35:20 Prediabete s 762150010 Active 2022 Jacklyn Dasilva MD [address], [address], [place], [address] , [employer] 3 09:13:25 Lung mass 652115353 Active 2022 Jacklyn Dasilva MD [address], [address], [place], [address] , [employer] 3 15:52:17 Diabetes mellitus 17734884 Active 2023 Jacklyn Dasilva MD [address], [address], [place], [address] , [employer] 4 10:14:44 Mammograph y abnormal 370280763 Active 2023 ERICK Fam [address], [address], [place], [address] , [employer] 4 16:45:14 Skin lesion 36642643 Active 2023 ERICK Santos [address], [address], [place], [address] , [employer] 4 10:14:07 Memory impairment 429895378 Active 2023 ERICK Fam [address], [address], [place], [address] , [employer] 4 10:13:58 Abnormal gait due to impairment of balance 122608393 Active 2023 ERICK Fam [address], [address], [place], [address] , [employer] [facility] 4 10:14:13 Nausea 737162347 Active 2023 ERICK Fam [address], [place], [address] , [employer] 4 10:19:01 Problem Notes None recorded. Procedures Surgical History Date Name Laterality Status Provider Name and Address Organization Details Recorded Time Medicare Wellness CPT Code, subsequent completed Jacqueline Espinal CMA [place] [employer] 11/18/2022 09:03:35 Imaging Results Imaging Date Name Status LastModified by Organiz ation Details LastModified Time 02/15/2023 LDCT, chest, for lung cancer screening completed [email or web address] [address], [address], 02/24/2023 09:39:52 03/22/2023 DEXA completed [email or web address] [address], [address], 10/14/2023 10:48:06 03/22/2023 DEXA completed [email or web address] [address], [address], 04/12/2023 14:32:46 05/13/2023 CT, chest, w/o contrast completed [email or web address] [address], [address], 05/19/2023 17:54:59 12/27/2023 MAMMO, diagnostic, digital, bilateral completed [email or web address] [address], [address], 12/28/2023 09:22:25 05/18/2024 MRI, brain + brain stem, w/o contrast completed [email or web address] [address], [address], 05/18/2024 19:23:05 Procedure Notes None recorded. Medical Equipment None Reported. Allergies No known drug allergies Medications Name Sig Start Date Stop Date Status Note LastModified by Organization Details LastModified Time celecoxib 200 mg capsule TAKE 1 CAPSULE BY MOUTH TWICE DAILY WITH FOOD active Not Available Not Available No t Available cyclobenzap rine 10 mg tablet TAKE 1 TABLET BY MOUTH THREE TIMES A DAY NEEDED FOR MUSCLE SPASMS 07/06 completed Not Available Not Available Not Available amoxicillin 500 mg capsule TAKE 1 CAPSULE BY MOUTH FOUR TIMES A DAY UNTIL GONE 03/28 completed Not Available Not Available Not Available prednisone 10 mg tablet 11/04 completed Not Available Not Available Not Available ipratropium 0.5 mg-albutero l 3 mg (2.5 mg base)/3 mL nebulizatio n soln USE 1 AMPULE IN NEBULIZER EVERY 4 HOURS NEEDED FOR SHORTNESS OF BREATH OR WHEEZING active Not Available Not Available No t Available cetirizine 10 mg tablet Take 1 tablet every day by oral route. 12/22 completed Not Available Not Available Not Available azithromyci n 250 mg tablet 11/04 completed Not Available Not Available Not Available miconazole nitrate 2 % topical cream SAMANTHA TOPICALLY AA D 11/04 completed Not Available Not Available Not Available benzonatate 200 mg capsule TK ONE C PO TID PRF COUGH 11/04 completed Not Available Not Available Not Available hydrocodone 5 mg-acetamin ophen 325 mg tablet TAKE 1 TABLET BY MOUTH EVERY 6 HOURS NEEDED FOR PAIN 12/22 completed Not Available Not Available Not Available ondansetron HCl 4 mg tablet active Not Available Not Available Not Available alendronate 70 mg tablet TAKE 1 TABLET BY MOUTH ONE TIME PER WEEK active Not Available Not Available No t Available phentermine 37.5 mg tablet TK 1 T PO ONCE D 2023 active Not Available Not Available Not Avai lable acetaminoph en 300 mg-codeine 30 mg tablet TAKE 1 TABLET BY MOUTH FOUR TIMES DAILY NEEDED FOR PAIN 12/22 completed Not Available Not Available Not Available triamcinolo ne acetonide 0.1 % topical cream 11/04 completed Not Available Not Available Not Available ondansetron 8 mg disintegrat ing tablet DISSOLVE 1 TABLET ON THE TONGUE EVERY 4-6 HOURS NEEDED 12/22 completed Not Available Not Available Not Available meloxicam 7.5 mg tablet TAKE 1 TABLET BY MOUTH TWICE A DAY 11/04 completed Not Available Not Available Not Available methotrexat e sodium 2.5 mg tablet TAKE 8 TABLETS BY MOUTH ONCE A WEEK active Not Available Not Available No t Available triamcinolo ne acetonide 40 mg/mL suspension for injection Take 40 mg by injection route. 12/22 completed Not Available Not Available Not Available cephalexin 500 mg capsule 11/04 completed Not Available Not Available Not Available Advair Diskus 250 mcg-50 mcg/dose powder for inhalation TAKE 1 PUFF BY MOUTH TWICE A DAY 11/04 completed Not Available Not Available Not Available folic acid 1 mg tablet TAKE 2 TABLETS BY MOUTH ONCE DAILY active Not Available Not Available No t Available ergocalcife rol (vitamin D2) 1,250 mcg (50,000 unit) capsule 12/22 completed Not Available Not Available Not Available hydroxychlo roquine 200 mg tablet TAKE 2 TABLETS BY MOUTH ONCE DAILY active Not Available Not Available No t Available methylpredn isolone 4 mg tablets in a dose pack TAKE 6 TABLETS ON DAY 1 DIRECTED ON PACKAGE AND DECREASE BY 1 TAB EACH DAY FOR A TOTAL OF 6 DAYS 07/27 completed Not Available Not Available Not Available albuterol sulfate HFA 90 mcg/actuati on aerosol inhaler INHALE 2 PUFFS BY MOUTH EVERY 4 TO 6 HOURS NEEDED active Not Available Not Available No t Available ondansetron 4 mg disintegrat ing tablet Place 1 tablet twice a day by transling ual route. active Not Available Not Available No t Available fluticasone propionate 50 mcg/actuati on nasal spray,suspe nsion 06/30 completed Not Available Not Available Not Available metformin ER 500 mg tablet,exte nded release 24 hr Tk 2 ts po once daily active Not Available Not Available No t Available doxycycline hyclate 100 mg tablet Take 1 tablet twice a day by oral route for 7 days. 11/18 completed Not Available Not Available Not Available naproxen 500 mg tablet TAKE 1 TABLET BY MOUTH TWICE A DAY NEEDED FOR PAIN 11/04 completed Not Available Not Available Not Available bupropion HCl XL 300 mg 24 hr tablet, extended release TAKE 1 TABLET BY MOUTH EVERY DAY active Not Available Not Available No t Available bupropion HCl XL 150 mg 24 hr tablet, extended release Take 1 tablet every day by oral route. active Not Available Not Available No t Available Spiriva with HandiHaler 18 mcg and inhalation capsules 11/04 completed Not Available Not Available Not Available ibandronate 150 mg tablet TAKE 1 TABLET BY MOUTH ONCE MONTHLY 11/11 completed Not Available Not Available Not Available Breo Ellipta 200 mcg-25 mcg/dose powder for inhalation INHALE 1 PUFF ONCE DAILY active Not Available Not Available No t Available Ozempic 0.25 mg or 0.5 mg (2 mg/3 mL) subcutaneou s pen injector 0.5 mg sc qweek 2023 active Not Available Not Available Not Avai lable Vitals Date Recorded Body height Body mass index (BMI) Body weight Body temperature Heart rate Oxygen saturation Oxygen saturation in Arterial blood by Pulse oximetry Systolic blood pressure Diastolic blood pressure Provider Name and Address Organization Details Last Updated DateTime 3 160.02 cm 32.4 kg/m2 80046.4 g 97.2 [degF] 87 /min 96 % 96 % 142 mm[Hg] 86 mm[Hg] Jacqueline pantoja CMA [facility] 3 08:59:05 Date Recorded Body height Body mass index (BMI) Body weight Body temperature Heart rate Oxygen saturation Oxygen saturation in Arterial blood by Pulse oximetry Systolic blood pressure Diastolic blood pressure Provider Name and Address Organization Details Last Updated DateTime 3 160.02 cm 32.1 kg/m2 36763.2 2 g 97.2 [degF] 100 /min 95 % 95 % 130 mm[Hg] 70 mm[Hg] Aman Barry RN [facility] [employer] 3 09:53:32 Date Recorded Body height Body mass index (BMI) Body weight Body temperature Heart rate Oxygen saturation Oxygen saturation in Arterial blood by Pulse oximetry Systolic blood pressure Diastolic blood pressure Provider Name and Address Organization Details Last Updated DateTime 4 160.02 cm 33 kg/m2 90467.9 3 g 97.6 [degF] 104 /min 96 % 96 % 136 mm[Hg] 70 mm[Hg] Avelina [place] MA [facility] [employer] 4 10:08:12 Date Recorded Body height Body mass index (BMI) Body weight Body temperature Heart rate Oxygen saturation Oxygen saturation in Arterial blood by Pulse oximetry Systolic blood pressure Diastolic blood pressure Provider Name and Address Organization Details Last Updated DateTime 4 160.02 cm 32.4 kg/m2 49448.4 g 97.6 [degF] 92 /min 96 % 96 % 118 mm[Hg] 60 mm[Hg] Shira Colón RN [place] [employer] [facility] 4 10:05:20 Date Recorded Body height Body mass index (BMI) Body weight Body temperature Oxygen saturation Oxygen saturation in Arterial blood by Pulse oximetry Heart rate Systolic blood pressure Diastolic blood pressure Provider Name and Address Organization Details Last Updated DateTime 4 160.02 cm 30.1 kg/m2 60622.7 g 97.8 [degF] 98 % 98 % 86 /min 134 mm[Hg] 78 mm[Hg] Aman Barry RN [place] [facility] [employer] [facility] 4 10:03:49 Social History Question Answer Notes LastModified by Organizat ion Details LastModified Time Tobacco Smoking Status Former Smoker 1/2 ppd now started smoking in her teens 1 ppd until age 61 then quit 5 years, now 1/2 ppd Not Available [employer] 08/04/2022 12:46:33 What Is Your Level Of Alcohol Consumption? Occasional [id number] Information not available 08/04/2022 Are You Blind Or Do You Have Difficulty Seeing? No [email or web address] Information not available 11/18/2022 What Is Your Level Of Caffeine Consumption? Moderate [id number] Information not available 08/04/2022 In The 14 Days Before Symptom Onset, Have You Had Close Contact With A Laboratory-confir med COVID-19 While That Case Was Ill? No [id number] Information not available 08/04/2022 In The 14 Days Before Symptom Onset, Have You Had Close Contact With A Person Who Is Under Investigation For COVID-19 While That Person Was Ill? No [id number] Information not available 08/04/2022 Are You Deaf Or Do You Have Serious Difficulty Hearing? No [email or web address] Information not available 11/18/2022 What Type Of Diet Are You Following? REGULAR [id number] Information not available 08/04/2022 What Was The Date Of Your Most Recent Tobacco Screening? 11/04/2021 [id number] Information not available 08/04/2022 Have You Ever Been Counseled For Unhealthy Alcohol Use? No [id number] Information not available 08/04/2022 Do You Use Any Illicit Or Recreational Drugs? No [id number] Information not available 08/04/2022 Has Tobacco Cessation Counseling Been Provided? No [id number] Information not available 08/04/2022 Have You Recently Traveled Abroad? No [id number] Information not available 08/04/2022 Do You Have Any Dietary Restrictions? No [id number] Information not available 08/04/2022 Do You Or Have You Ever Used Any Other Forms Of Tobacco Or Nicotine? No [id number] Information not available 08/04/2022 Sex: Unknown Functional Status Question Answer Note LastModified by Organizat ion Details LastModified Time Do you have difficulty walking or climbing stairs? No arthritis [email or web address] Information not available 11/18/2022 Do you have transportation difficulties? No [email or web address] Information not available 11/18/2022 Are you able to walk? [employer]OREST [email or web address] Information not available 11/18/2022 Do you have difficulty doing errands alone? No [email or web address] Information not available 11/18/2022 Are you able to care for yourself? Yes [email or web address] Information n ot available 11/18/2022 Do you have difficulty dressing or bathing? No [email or web address] Information not available 11/18/2022 What is your exercise level? None [id number] Information not available 08/04/2022 Mental Status Question Answer Note LastModified by Organization D etails LastModified Time Do you have difficulty concentrating, remembering or making decisions? No [email or web address] Information no t available 11/18/2022 Family History Relationship Description Onset Age of this Age Resolved Age Notes LastModified by Organization Details LastModified Time Maternal Grandmother Diabetes mellitus [id number] Not available 08/04/2022 12:46:37 Mother Malignant tumor of stomach [id number] Not available 08/04/2022 12:46:37 Sister Malignant tumor of breast [id number] Not available 08/04/2022 12:46:37 Medical History Condition Response LUNG DISEASE/DISORDER Y ARTHRITIS Y HEPATITIS / LIVER DISEASE Y Gynecological HistoryNo gynecological history recorded. Obstetrics History GPAL:G 0 P 0 0 0 0 Immunizations Vaccine Type Date Status Note Provider Nam e and Address Organization Details Recorded Time Influenza, high-dose, quadrivalent, PF 02/23/2022 completed Jacqueline Espinal CMA null, [place] [facility] 12/24/2022 08:59:32 Past Encounters Encounter ID Performer Location Encounter Start Date Encounter Closed Date Diagnosis/Indication Diagnosis SNOMED-CT Code Diagnosis ICD10 Code Diagnosis Note [id number] [facility] [place] [address] [facility] [address] [place] [address] 11/04/2021 00:00:00 11/04/2021 11:20:55 [id number] [facility] [place] [address] [facility] [address] [place] [address] 12/02/2021 00:00:00 12/03/2021 08:11:14 [id number] [facility] [place] [address] [facility] [address] [place] [address] 02/23/2022 00:00:00 02/23/2022 15:13:00 [id number] [facility] [place] [address] [place] [address] [address] [place] [address] 04/27/2022 00:00:00 05/04/2022 08:11:54 [id number] [facility] [place] [address] [place] [address] 07/06/2022 00:00:00 07/06/2022 15:46:57 [id number] [facility] [place] [address] [place] [address] [address] [place] [address] 07/27/2022 00:00:00 08/02/2022 14:01:14 [id number] Neal Guerra MD [facility] [place] [address] [place] [address] 08/24/2022 12:08:09 08/24/2022 12:42:02 Pain of right wrist [id number] 23128 M25.531 Carpal pascual yadi syndrome of right wrist [id number] 15428 G56.01 patient has failed conservati ve treatment for carpal tunnel she understand s the risks the benefits alternativ es and wishes to proceed with surgery due to the nocturnal paresthesi as than the numbing and tingling off and on throughout the day to the right hand [id number] Neal Guerra MD [facility] [place] [address] [place] [address] 10/12/2022 14:13:09 10/12/2022 15:45:30 Pain of right wrist [id number] 13683 M25.531 Bilateral carpal tunnel syndrome [id number] G56.01 remove the sutures today patient can work on nerve and tendon glides we will see her back in 2 months for follow-up [id number] GUANAKITO Morales [facility] Primary Care [facility] [address] [facility] [address] [place] [address] 11/18/2022 08:52:45 11/18/2022 10:09:38 Adult health examination 034903950 Z00.01 Medicar e Wellness Exam--C ontinue current medication s/treatmen ts for chronic medical issues.--R ecommend mammogram, due 07/2023--Re commend DEXA scan, ordered--P neumonia vaccinatio n(s) recommende d-up-to-da te--Flu vax not due until fall.--Rec ommend Hep B series.--A dvanced directives informatio n given.--Co elsy screening recommende d-Cologuar d ordered--A AA screening not indicated at this time.--Rec ommend routine yearly f/u for dental, vision, hearing evaluation s.-- Hep C screening- -Smoker-qu it 5 months ago; encouraged pt to remain non-smoker , LDCT ordered.-- Shingles vaccinatio n-up to date--Tdap up to date Screening for disorder 258805980 Z13.9 Screening mammography 24 505809 Z12.31 Mammogram wnl (07/28/22) Chronic ob structive pulmonary disease 42252166 J44.9 Chronic, stableEnco uraged pt to remain non-smoker . Discussed progressiv e nature of COPD at length. Encouraged proper breathing techniques . Advised compliance with, nebulizer and inhaled medication s as directed. Encouraged patient to avoid cigarette smoke, allergens, and environmen jessica pollutants . Advised HVAC filters be changed seasonally as well. Osteoporosis 78029812 M8 1.0 Chronic, status unknownPt due for repeat DEXA scan.Jeanmarie jaylen alendronat e 70mg weekly Tobacco user 280629930 Z 72.0 Smoker starting in teens, quit for 5 yrs at age 61; went back to smoking 1/2ppd, but quit again 5 months ago.Encour aged pt to remain non smoker. Smoking cessation counseling and techniques reviewed at length with pt. Literature reviewed. Avoid triggers, support groups. Discussed cessation options (counselin g, medication s, e-cigarett es, patches, alternativ e therapies) . Discussed Rx options if needed in the future. Rheumatoid arthritis 698 47421 M06.9 ChronicRF >120.0 (11/04/21)AN A positive 1: 160 (11/04/21)Kel fournier scheduled appt with neda dolan in January.Con tinue with Celebrex 400mg daily. Ok to add in Tylenol per package instructio ns. Will give triamcinol one injection in office today.Pt declines oral steroids b/c she would have to stop celebrex. Screening for malignant neoplasm of colon 254397529 Z12.11 Mood disorder 89866327 F 39 Chronic, stableEnco uraged pt to consider counseling . Denies any SI/HI at this time. Continue bupropion XL 300mg daily. Pt to stop medication and be seen if s/e develop. [id number] Jacklyn Dasilva MD [facility] Primary Care [facility] [address] [facility] [address] [place] [address] 12/24/2022 08:52:24 12/24/2022 09:18:56 Prediabetes 713887929 R73.03 A1c was 6.7, no previous number to reviewwill begin metformin ER 500 mg once with dinner for 1 week then increase to 2 po qdinnerinc rease physical activity, discussed diet changes, will work on 5 pound weight lossf/u in 3 months if a1c persistent ly elevated, would consider her a newly dx diabetic, she is interested in possibly trying GLP-1 if no improvemen t [id number] Jacklyn Dasilva MD [facility] Primary Care [facility] [address] [facility] 140 [facility] [place] [address] 03/28/2023 09:47:41 03/28/2023 10:40:30 Prediabetes 093415921 R73.03 A1c was 6.7, no previous number to reviewwill begin metformin ER 500 mg once with dinner for 1 week then increase to 2 po qdinnerinc rease physical activity, discussed diet changes, will work on 5 pound weight lossf/u in 3 months if a1c persistent ly elevated, would consider her a newly dx diabetic, she is interested in possibly trying GLP-1 if no improvemen t update 03/28/23: down 3 pounds, tolerating metforminc heck a1c [id number] Jacklyn Dasilva MD [facility] Primary Care [address] 140 [facility] [place] [address] 09/26/2023 09:57:09 09/26/2023 10:23:42 Diabetes mellitus 75711990 E11.9 ok to d/c metformino k to begin ozempic, plan to titrate up q4 weeks as toleratedf /u in 3 months [id number] GUANAKITO Santos-Ephraim [facility] Primary Care [address] 140 [facility] [place] [address] 12/27/2023 09:58:15 12/27/2023 11:02:39 Diabetes mellitus 03226372 E11.9 -was on ozempic for a couple months, but has not taken for the last 3 weeks-note s A1c being-labs obtained Dietary me naresh surveillance 647321504 Z71.3 Skin lesion 99577556 L98 .9 [id number] ERICK Fam [facility] Primary Care [address] 140 [facility] [place] [address] 03/22/2024 09:49:59 03/22/2024 10:52:27 Memory impairment 976284803 R41.[address] as listed below.Neur ology referral placed due to worsening memory impairment and family history of dementia. Family his tory of dementia 754652316 Z81.8 Neurologis t referral placed as listed above. Abnormal g ait due to impairment of balance 701849635 R26.89 Prediabetes 720065595 R7 3.03 (12/2023) A1c is 6.0 Nausea 253256931 R11.0 Will treat as listed below.Brittany ent to contact office if symptoms do not improve or if symptoms worsen. Health Concerns Section Related Observation LastModified by Organization Detai ls LastModified Time None Recorded Concern Status LastModified by Organization Details LastModified Time None Recorded Advance Directives Directive None Recorded Payers Encounter Date Sequence Insurance Name Policy Number Policy Valdez Covered Member ID Valdez Member ID Guarantor Name 12/24/2022 1 [employer] (MEDICARE REPLACEMENT/A DVANTAGE - HMO) [id number] Maria Luz E Bethany [id number] Maria Luz E Bethany 03/28/2023 1 [employer] (MEDICARE REPLACEMENT/A DVANTAGE - HMO) [id number] Maria Luz Luis Bethany [id number] Maria Luz E Bethany 09/26/2023 1 [employer] (MEDICARE REPLACEMENT HMO) [id number] Maria Luz E Bethany [id number] Maria Luz E Bethany 12/27/2023 1 [employer] (MEDICARE REPLACEMENT HMO) [id number] L Maria Luz E Bethany [id number] Maria Luz E Bethany 03/22/2024 1 [employer] (MEDICARE REPLACEMENT HMO) [id number] L Maria Luz Smith Bethany [id number] Maria Luz Smith Bethany Notes Date Note Type Note Provider Name and Address Organization Details Recorded Time 12/24/2022 text/html here to f/u on l abs showing a1c 6.7. She has h/o RA and joint pain and can't be as active as she would like. No chest pain, no sob. She has been using otc strips to check her urine and has not seen any glucose in urine. Jacklyn Dasilva MD [address] [place] [address], [facility] [address], [place], [address], [facility] [employer] 12/24/2022 09:20:40 03/28/2023 text/html here to f/u on l abs showing a1c 6.7. She has h/o RA and joint pain and can't be as active as she would like. No chest pain, no sob. She has been using otc strips to check her urine and has not seen any glucose in urine. update 03/28/23: She is taking methotrexate for RA and is able to be more active. She is down 3 pounds from last appt and is tolerating metformin well. Jacklyn Dasilva MD [address], [place], [address], [employer] 03/28/2023 10:29:47 09/26/2023 text/html here to f/u on l abs showing a1c 6.7. She has h/o RA and joint pain and can't be as active as she would like. No chest pain, no sob. She has been using otc strips to check her urine and has not seen any glucose in urine. update 03/28/23: She is taking methotrexate for RA and is able to be more active. She is down 3 pounds from last appt and is tolerating metformin well. 09/26/23: a1c was 6, she would like to try ozempic to help with weight loss Jacklyn Dasilva MD [address], [place], [address], [employer] 10/23/2023 16:28:50 12/27/2023 text/html Pt is here for f/u ERICK Woods [address], [place], [address], [employer] 12/27/2023 10:25:35 03/22/2024 text/html Patient is a 68 year old female that presents to the office because she is not herself . Patient reports she has had balance issues/staggers when she walks. Patient reports she has had these issues for over a year but they have gotten worse over the last couple of months. Patient reports she fell about one month ago. She was pushing a potted plant, the plant got too far out in front of her and she couldn't catch herself and landed on her knees.Patient reports occasional headaches, denies any known triggers-sometimes the headaches last for a week straight, sometimes they are just a few hours. Patient denies vision changes and dizziness associated with the headaches.Patient also reports she has been forgetful, first noticed memory issues about 6 months ago, brother has dementia. Patient reports nausea for at least one month. I am just sick to my stomach all the time . Chopper Gun Operator started her on Hydroxychloroquine shortly before the nausea started. Patient denies chest pain and shortness of breath. Donna Her, GUANAKITO-C [address] [facility], [facility] [address], [place], [address], [place] [facility] 03/22/2024 22:03:47 OBGyn Episode No OBEpisode recorded.
--- OUTSIDE RECORDS SUMMARY | 2024-09-08 18:23 | XMS_ITS | Continuity of Care Document ---
Author Organization [facility] Address [address] [place] [address] [address] [place] [address] Phone Care Team Providers Care Lead Android Developer Name Role Phone Jose Natarajan Unavailable Unavailable Advance Directives Directive Yes / No Effective Date File Name No Information Encounters Encounter Description Practice Location Reason(s) For Visit Diagnoses Date Provider Providers Copied on Encounter [facility], [address], [place], [place], [id number], [place] tel:[phone] [facility] [place] No Information Jul-0 7-200 3 Doisy Edward. [address] [facility] , [address], [place], [address], [place]. tel:[phone] Family History Family Member Type Diagnosis Age At Onset No Information Payers Payer name Insurance type Covered republican ID Authoriza tion(s) No Information Social History [...]
--- OUTSIDE RECORDS SUMMARY | 2024-09-08 18:23 | XMS_ITS | Referral Summary ---
Author Organization [facility] Address 1 [place] [address] Care Team Providers Care Network Analyst Name Role Phone Donna Her NP Primary Care Provider Encounters Date Type Department Care Team Description 08/08/2024 12:55 PM RESEARCH INSTRUMENTATION TECHNICIAN Lab [facility] Endocrinology Metabolism and Lipid [address] [facility] 5th [place] [address] Rheumatoid arthritis, involving unspecified site, unspecified whether rheumatoid factor present (HCC); High risk medication use 08/08/2024 11:00 AM RESEARCH INSTRUMENTATION TECHNICIAN Office Visit [facility] Rheumatology [address] [place] [address] Marti Gaspar MD Rheumatoid arthritis, involving unspecified site, unspecified whether rheumatoid factor present (HCC) (Primary Dx); High risk medication use from Last 3 Months Allergies No known active allergies Medications albuterol [...] 24 hr Take 15 mg by mouth assistant purchasing manager before breakfast 30 tablet 6 09/20/19 24 [...] Pulmonary emphysema 02/02/2023 Seropositive rheumatoid arthritis 02/02/2023 Immunizations Immunization Administration Dates Next Due Influenza, Quadrivalent, Hig h Dose, Preservative Free, Intrr 03/16/2023 Social History Tobacco Use Types Packs/Day Years Used Date Smoking Tobacco: Former Cigarettes Q uit: 11/02/2022 Tobacco Cessation:Counseling Given: Not Answered Comments Unknown Sex and Gender Information Value Date Recorded Sex Assigned at Not on file Legal Sex Female 8:25 AM RESEARCH INSTRUMENTATION TECHNICIAN Gender Identity Not on file Sexual Orientation Not on file Last Filed Vital Signs Vital Sign Reading Time Taken Comments Blood Pressure 131/81 08/08/2024 11:03 AM RESEARCH INSTRUMENTATION TECHNICIAN Pulse 93 08/08/2024 11:03 AM RESEARCH INSTRUMENTATION TECHNICIAN Temperature 36.7 C (98.1 F) 09/07/2023 9:51 AM CDT Respiratory Rate - - Oxygen Saturation 96% 02/08/2024 10:49 AM CDT Inhaled Oxygen Concentration - - Weight 79.8 kg (176 lb) 08/08/2024 11:03 AM RESEARCH INSTRUMENTATION TECHNICIAN Height 160 cm (5' 3 ) 08/08/2024 11:03 AM RESEARCH INSTRUMENTATION TECHNICIAN Body Mass Index 31.18 08/08/2024 11:03 AM RESEARCH INSTRUMENTATION TECHNICIAN Plan of Treatment Not on file Procedures Procedure Name Priority Date/Time Associated Diagnosis Comments COMPREHENSIVE METABOLIC PANEL Routine 08/08/2024 11:33 AM RESEARCH INSTRUMENTATION TECHNICIAN Rheumatoid arthritis, involving unspecified site, unspecified whether rheumatoid factor present (HCC) High risk medication use CBC WITH AUTO DIFFERENTIAL Routine 08/08/2024 11:33 AM RESEARCH INSTRUMENTATION TECHNICIAN Rheumatoid arthritis, involving unspecified site, unspecified whether rheumatoid factor present (HCC) High risk medication use HEPATITIS C RNA, QUANTITATIVE, PCR Routine 02/02/2023 1:01 PM CDT Rheumatoid arthritis, involving unspecified site, unspecified whether rheumatoid factor present (HCC) Vitamin D deficiency from Last 3 Months or Most Recently Relevant to Health Maintenance Results * (ABNORMAL) CBC with auto differential (08/08/2024 11:33 AM RESEARCH INSTRUMENTATION TECHNICIAN) White Blood Count 6.4 3.6 - 11.2 [...] - [facility] Blood 08/08/2024 11:3 3 AM RESEARCH INSTRUMENTATION TECHNICIAN 08/08/2024 12:47 PM RESEARCH INSTRUMENTATION TECHNICIAN us Marti Gaspar MD LAB BLOOD ORDERABLES Final Result [facility] * (ABNORMAL) Comprehensive metabolic panel (08/08/2024 11:33 AM RESEARCH INSTRUMENTATION TECHNICIAN) Pathologist [facility] Total Protein 7.5 6.1 - 8.4 g/dL [...] - [facility] Blood 08/08/2024 11:3 3 AM RESEARCH INSTRUMENTATION TECHNICIAN 08/08/2024 12:47 PM RESEARCH INSTRUMENTATION TECHNICIAN us Marti Gaspar MD LAB BLOOD ORDERABLES Final Result [facility] * Hepatitis C (HCV) RNA PCR, quantitative Blood (02/02/2023 1:01 PM CDT) [facility] HCV RNA result Not Detected [facility] Comment: The quantifiable range of this assay is 15 IU/mL to 100,000,000 IU/mL (1.18 log IU/mL to 8.00 log IU/mL). Testing was performed by the [facility] HCV Test ([employer] Testing performed at [facility] Current Interpretive Data was last revised on 2021 Blood 02/02/2023 1:01 PM CDT 02/02/2023 1:22 PM CDT us Marti Gaspar MD LAB MICROBIOLOGY - GENERAL ORDERABLES Final Result [facility] Department [place] [address] [facility] from Last 3 Months or Most Recently Relevant to Health Maintenance Insurance [facility] MEDICARE [facility] AET MEDICARE GOLD Care Teams Network Analyst Relationship Specialty Start Date End Date Donna Her, USHA [address] [place] [address] PCP - General Family Medicine 04/03/24
[2024-09-08 20:35] LABS: Basophils Absolute Auto 0.1 K/mm3 (0.0-0.1); Basophils Percent Auto 0.7 % (0.2-1.2); Eosinophils Absolute Auto 0.3 K/mm3 (0-0.3); Eosinophils Percent Auto 3.2 % (0-4.4); Hematocrit 39.7 % (37.0-47.0); Hemoglobin 12.9 g/dL (12.0-15.0); Immature Granulocyte Absolute 0.04 K/mm3 (0.00-0.031); Immature Granulocyte Percent A 0.4 % (0-0.5); Lymphocytes Absolute Auto 1.72 K/mm3 (0.9-3.2); Lymphocytes Percent Auto 16.7 % (18.3-44.2); Mean Corpuscular HGB Conc 32.5 g/dl (32-36); Mean Corpuscular Hemoglobin 33.1 pg (26-34); Mean Corpuscular Volume 101.8 fl (80-100); Mean Platelet Volume 10.4 fl (7.4-10.4); Monocytes Absolute Auto 0.8 K/mm3 (0.1-0.6); Monocytes Percent Auto 8.2 % (2.6-8.5); Neutrophils Absolute Auto 7.3 K/mm3 (1.3-6.7); Neutrophils Percent Auto 70.8 % (45.5-73.1); Platelet Count Result 266 k/mm3 (150-375); Red Cell Distribution Width 14.3 % (11.5-14.5); White Blood Count 10.3 K/mm3 (4.5-10.0)
[2024-09-08 20:38] LABS: Add Urine Microscopic? YES; Appearance Urine Clear (Clear); Bacteria Urine None Seen /hpf; Bilirubin Urine Negative (Negative); Blood Urine Negative (Negative); Color Urine Yellow (Yellow); Glucose Urine UA Negative (Negative); Ketones Urine Trace mg/dL (Negative); Leukocyte Esterase Ur 2+ LEU/UL (Negative); Nitrate Urine Negative (Negative); Non Pathogenic Casts 0-2; Protein Urine Negative (Negative); RBC Urine 0-2 /hpf (0-2); Specific Grav Ur 1.024 (1.001-1.035); Squamous Epithelial Cell Urine Occasional /hpf (Few); Urobilinogen Urine 0.2 mg/dL (<2.0); WBC Urine 21-50 /hpf (0-3)
--- NOTE | 2024-09-08 20:45 | PC.NURSE ---
Pt has asked multiple times for pain medication. This RN has explained that no MD has signed up yet.
--- NOTE | 2024-09-08 21:00 | PC.NURSE ---
Pt removed self from monitor. States she is in too much pain. Pt pacing room.
[2024-09-08 21:18] LABS: Alanine Aminotransferase 27 U/L (6-35); Albumin Level 4.6 g/dL (3.5-5.1); Alkaline Phosphatase 85 U/L (38-126); Anion Gap 9 mmol/L (4-12); Aspartate Amino Transferase 32 U/L (14-36); Bilirubin,Total 0.3 mg/dL (0.2-1.3); Blood Urea Nitrogen 22 mg/dL (7-17); Calcium 9.6 mg/dL (8.4-10.2); Carbon Dioxide 25 mmol/L (22-30); Chloride 104 mmol/L (98-107); Estimated CRCL calculation 60 ml/min; Estimated Glomerular Filt Rate > 60; Glucose 124 mg/dL (65-110); Lipase 85 U/L (23-300); Potassium 4.5 mmol/L (3.4-5.0); Sodium 138 mmol/L (137-145)
--- OUTSIDE RECORDS SUMMARY | 2024-09-08 21:26 | XMS_ITS | Referral Summary ---
Author Organization [facility] al Address [address] [place] [address] Care Team Providers Care Phlebotomist Associate Name Role Phone Donna Her NP Primary Care Provider Encounters Date Type Department Care Team Description 08/08/2024 12:55 PM DIRECTOR OF FINANCE Lab [facility] Endocrinology Metabolism and Lipid [address] [facility] 5th [place] [address] Rheumatoid arthritis, involving unspecified site, unspecified whether rheumatoid factor present (HCC); High risk medication use 08/08/2024 11:00 AM DIRECTOR OF FINANCE Office Visit [facility] Rheumatology [address] [place] [address] Marti Gaspar MD Rheumatoid arthritis, [...] 24 hr Take 15 mg by mouth casino investigator before breakfast 30 tablet 6 09/20/19 24 [...] on file Legal Sex Female 8:25 AM DIRECTOR OF FINANCE Gender Identity Not on file Sexual Orientation Not on file Last Filed Vital Signs Vital Sign Reading Time Taken Comments Blood Pressure 131/81 08/08/2024 11:03 AM DIRECTOR OF FINANCE Pulse 93 08/08/2024 11:03 AM DIRECTOR OF FINANCE Temperature 36.7 C (98.1 F) 09/07/2023 9:51 AM CDT Respiratory Rate - - Oxygen Saturation 96% 02/08/2024 10:49 AM CDT Inhaled Oxygen Concentration - - Weight 79.8 kg (176 lb) 08/08/2024 11:03 AM DIRECTOR OF FINANCE Height 160 cm (5' 3 ) 08/08/2024 11:03 AM DIRECTOR OF FINANCE Body Mass Index 31.18 08/08/2024 11:03 AM DIRECTOR OF FINANCE Plan of Treatment Not on file Procedures Procedure Name Priority Date/Time Associated Diagnosis Comments COMPREHENSIVE METABOLIC PANEL Routine 08/08/2024 11:33 AM DIRECTOR OF FINANCE Rheumatoid arthritis, involving unspecified site, unspecified whether rheumatoid factor present (HCC) High risk medication use CBC WITH AUTO DIFFERENTIAL Routine 08/08/2024 11:33 AM DIRECTOR OF FINANCE Rheumatoid arthritis, involving unspecified site, unspecified whether rheumatoid factor present (HCC) High risk medication use HEPATITIS C RNA, QUANTITATIVE, PCR Routine 02/02/2023 1:01 PM CDT Rheumatoid arthritis, involving unspecified site, unspecified whether rheumatoid factor present (HCC) Vitamin D deficiency from Last 3 Months or Most Recently Relevant to Health Maintenance Results * (ABNORMAL) CBC with auto differential (08/08/2024 11:33 AM DIRECTOR OF FINANCE) White Blood Count 6.4 3.6 - 11.2 [...] - [facility] Blood 08/08/2024 11:3 3 AM DIRECTOR OF FINANCE 08/08/2024 12:47 PM DIRECTOR OF FINANCE us Marti Gaspar MD LAB BLOOD ORDERABLES Final Result [facility] * (ABNORMAL) Comprehensive metabolic panel (08/08/2024 11:33 AM DIRECTOR OF FINANCE) Pathologist [facility] Total Protein 7.5 6.1 - 8.4 g/dL [...] - [facility] Blood 08/08/2024 11:3 3 AM DIRECTOR OF FINANCE 08/08/2024 12:47 PM DIRECTOR OF FINANCE us Marti Gaspar MD LAB BLOOD ORDERABLES Final Result [facility] * Hepatitis C (HCV) RNA PCR, quantitative Blood (02/02/2023 1:01 PM CDT) [facility] HCV RNA result Not Detected [facility] Comment: The quantifiable range of this assay is 15 IU/mL to 100,000,000 IU/mL (1.18 log IU/mL to 8.00 log IU/mL). Testing was performed by the [facility] HCV Test ([employer] Testing performed at [facility] Current Interpretive Data was last revised on 2021 Blood 02/02/2023 1:01 PM CDT 02/02/2023 1:22 PM CDT us Marti Gaspar MD LAB MICROBIOLOGY - GENERAL ORDERABLES Final Result [facility] One [facility] Department [place] [address] [facility] from Last 3 Months or Most Recently Relevant to Health Maintenance Insurance [facility] MEDICARE [facility] AET MEDICARE GOLD Care Teams Phlebotomist Associate Relationship Specialty Start Date End Date Donna Her, USHA [address] [place] [address] PCP - General Family Medicine 04/03/24
--- OUTSIDE RECORDS SUMMARY | 2024-09-08 21:26 | XMS_ITS | Clinical Summary ---
Author Organization [facility] al Address [address] [place] [address] Care Team Providers Care Bread Wrapping Machine Feeder Name Role Phone Donna Her NP Primary Care Provider [phone] Allergies No known active allergies Medications albuterol [...] 24 hr Take 15 mg by mouth car whacker before breakfast 30 tablet 6 09/20/19 24 [...] Department Care Team Description 08/08/2024 12:55 PM CHILD CARE EDUCATION COORDINATOR Lab [facility] Endocrinology Metabolism and Lipid [address] [place] [address] [place] [address] Rheumatoid arthritis, involving unspecified site, unspecified whether rheumatoid factor present (HCC); High risk medication use 08/08/2024 11:00 AM CHILD CARE EDUCATION COORDINATOR Office Visit [facility] Rheumatology [address] [place] [address] [place] [address] Marti Gaspar MD Rheumatoid arthritis, [...] on file Legal Sex Female 8:25 AM CHILD CARE EDUCATION COORDINATOR Gender Identity Not on file Sexual Orientation Not on file Obstetrics History Last Filed Vital Signs Vital Sign Reading Time Taken Comments Blood Pressure 131/81 08/08/2024 11:03 AM CHILD CARE EDUCATION COORDINATOR Pulse 93 08/08/2024 11:03 AM CHILD CARE EDUCATION COORDINATOR Temperature 36.7 C (98.1 F) 09/07/2023 9:51 AM CDT Respiratory Rate - - Oxygen Saturation 96% 02/08/2024 10:49 AM CDT Inhaled Oxygen Concentration - - Weight 79.8 kg (176 lb) 08/08/2024 11:03 AM CHILD CARE EDUCATION COORDINATOR Height 160 cm (5' 3 ) 08/08/2024 11:03 AM CHILD CARE EDUCATION COORDINATOR Body Mass Index 31.18 08/08/2024 11:03 AM CHILD CARE EDUCATION COORDINATOR Plan of Treatment Health Maintenance Due Date [...] COMPREHENSIVE METABOLIC PANEL Routine 08/08/2024 11:33 AM CHILD CARE EDUCATION COORDINATOR Rheumatoid arthritis, involving unspecified site, unspecified whether rheumatoid factor present (HCC) High risk medication use CBC WITH AUTO DIFFERENTIAL Routine 08/08/2024 11:33 AM CHILD CARE EDUCATION COORDINATOR Rheumatoid arthritis, involving unspecified site, unspecified whether rheumatoid factor present (HCC) High risk medication use HEPATITIS C RNA, QUANTITATIVE, PCR Routine 02/02/2023 1:01 PM CDT Rheumatoid arthritis, involving unspecified site, unspecified whether rheumatoid factor present (HCC) Vitamin D deficiency from Last 3 Months or Most Recently Relevant to Health Maintenance Results * (ABNORMAL) CBC with auto differential (08/08/2024 11:33 AM CHILD CARE EDUCATION COORDINATOR) White Blood Count 6.4 3.6 - 11.2 [...] - [facility] Blood 08/08/2024 11:3 3 AM CHILD CARE EDUCATION COORDINATOR 08/08/2024 12:47 PM CHILD CARE EDUCATION COORDINATOR us Marti Gaspar MD LAB BLOOD ORDERABLES Final Result [facility] * (ABNORMAL) Comprehensive metabolic panel (08/08/2024 11:33 AM CHILD CARE EDUCATION COORDINATOR) Total Protein 7.5 6.1 - 8.4 g/dL [...] - [facility] Blood 08/08/2024 11:3 3 AM CHILD CARE EDUCATION COORDINATOR 08/08/2024 12:47 PM CHILD CARE EDUCATION COORDINATOR Marti Gaspar MD LAB BLOOD ORDERABLES Final Result [facility] * Hepatitis C (HCV) RNA PCR, quantitative Blood (02/02/2023 1:01 PM CDT) [facility] HCV RNA result Not Detected [facility] Comment: The quantifiable range of this assay is 15 IU/mL to 100,000,000 IU/mL (1.18 log IU/mL to 8.00 log IU/mL). Testing was performed by the JOSEPH 6800 HCV Test ([employer] Testing performed at [facility] Current Interpretive Data was last revised on 2021 Blood 02/02/2023 1:01 PM CDT 02/02/2023 1:22 PM CDT us Marti Gaspar MD LAB MICROBIOLOGY - GENERAL ORDERABLES Final Result [facility] [address] [place] [address] [facility] from Last 3 Months or Most Recently Relevant to Health Maintenance Insurance [facility] MEDICARE [facility] TNA MEDICARE [facility] Care Teams Bread Wrapping Machine Feeder Relationship Specialty Start Date End Date Donna Her NP [address] [address] PCP - General Family Medicine 04/03/24
--- OUTSIDE RECORDS SUMMARY | 2024-09-08 21:26 | XMS_ITS | CONTINUITY OF CARE DOCUMENT ---
Author Name pau mai Address Unknown Organization [facility] Address [id number] [place] [address] [address] [place] [address] Phone [phone] Care Team Providers Care Supervisor Cured Meats Name Role Phone pau mai Unavailable Unavailable INSURANCE PROVIDERS Payer name Policy type / Coverage type Jhonathan red green party ID [id number] ACCESS/PPO Other [id number]
--- OUTSIDE RECORDS SUMMARY | 2024-09-08 21:26 | XMS_ITS | Continuity of Care Document ---
Author Organization [facility] Address [id number] [place] [address] [address] [place] [address] Phone Care Team Providers Care Carver Hand Name Role Phone Jose Natarajan Unavailable Unavailable Advance Directives Directive Yes / No Effective Date File Name No Information Encounters Encounter Description Practice Location Reason(s) For Visit Diagnoses Date Provider Providers Copied on Encounter [facility], [address], [place], [place], [id number], [place] tel:[phone] [facility] No Information Jul-0 7-200 3 Doisy Edward. [address] , [address], [place], [address], [place]. tel:[phone] Family History Family Member Type Diagnosis Age [...]
--- NOTE | 2024-09-08 21:39 | ED.ABDPAIN ---
HPI - Abdominal Pain General Chief Complaint: Abdominal Pain Stated Complaint: RLQ ABD PAIN SINCE THIS AM Time Seen by Provider: 09/08/24 21:12 Source: patient and other (friend) Mode of arrival: ambulatory Limitations: no limitations History of Present Illness HPI narrative: Patient presents with RLQ and R flank pain since this morning. She even feels pain radiating to right hip. Associated with nausea and nonbloody vomiting. No trauma. No dysuria, urgency, frequency or hematuria. No fevers or chills. MARISABEL was food this morning and then popcorn at 11pm. No appetite. Not on anticoagulation. No vaginal bleeding or discharge. LBM this morning w/o diarrhea, constipation, blood. No prior abdominal surgeries (confirmed no prior guerrero appy or surgery). She is pacing due to pain. Related Data Home Medications ?Medication ?Instructions ?Recorded ?Confirmed ?Last Taken ?Type omeprazole 20 mg capsule,delayed 20 mg PO DAILY 06/07/19 09/09/24 Unknown History release alendronate 70 mg tablet 70 mg PO WEEKLY 09/09/24 09/09/24 Unknown History bupropion HCl 300 mg 24 hr tablet, 300 mg PO DAILY 09/09/24 09/09/24 Unknown History extended release celecoxib 200 mg capsule 200 mg PO Q12H 09/09/24 09/09/24 Unknown History folic acid 1 mg tablet 1 mg PO WEEKLY 09/09/24 09/09/24 Unknown History hydroxychloroquine 200 mg tablet 400 mg PO DAILY 09/09/24 09/09/24 Unknown History metformin 500 mg tablet,extended 500 mg PO DAILY 09/09/24 09/09/24 09/08/24 History release 24 hr methotrexate sodium 2.5 mg tablet 2.5 mg PO 09/09/24 Unknown History Allergies Allergy/AdvReac Type Severity Reaction Status Date / Time No Known Allergies Allergy Verified 09/08/24 18:21 [facility] Past Medical History Medical History Asthma Chronic hepatitis C without hepatic coma COPD (chronic obstructive pulmonary disease) SOB (shortness of breath) Vasomotor rhinitis Wheezing Surgical History Surgical History History of hand surgery Trigger finger surgery Family History Family History Sibling Family history of liver disease Other Asthma Social History Social History Social History: She has returned to smoking with the recent of her . She has over a 40 pack smoking history Smoking packs per day: 0.5 Smoking cigarettes per day: 10.0 Years smoked: 20 Smoking pack-years: 10.00 Smoking status: Never smoker Tobacco type: cigarettes (1 pack lasts a day) Second hand tobacco smoke exposure: No Alcohol intake: current Drinks per week: 1 Substance use: never Do You Feel Safe in your Home?: No Lack of Transportation: No Lack of Food: Never True Current Housing: I Have Housing Concerned About Future Housing: No Difficulty Paying Gas/Electric Bills: No Difficulty Paying for Meds: No Currently Unemployed: No Education: High School Diploma/GED Difficulty w/ Childcare or Family Care: No Spiritual care concerns: No Exam Narrative: GENERAL: Well-appearing, well-nourished, in mild acute distress, pacing around busby and in room. States can't sit due to pain. HEAD: Normocephalic, atraumatic. EYES: Non injected, non icteric ENT: Nares clear, no rhinorrhea or epistaxis. NECK: Supple. CHEST: Speaking in full sentences. No respiratory distress. HEART: Regular rate and rhythm. . ABDOMEN: Soft, nondistended. No idalia TTP although abdominal exam limited given patient standed/seated during most of it. No rigidity/guarding. Not peritoneal EXTREMITIES: Normal range of motion. No lower extremity edema. SKIN: Warm, dry, no rash. iN particular , examined skin of R flank/low back, along hip, and into abdomen - no ecchymosis, vessicles, erythema, etc. NEURO: No focal deficits. Alert and oriented x3. PSYCH: Congruent mood and affect. Course Vital Signs Vital signs: Vital Signs Temperature 97.5 F L 09/08/24 18:26 Pulse Rate 79 09/08/24 18:26 Respiratory Rate 20 09/08/24 18:26 Blood Pressure 118/68 09/08/24 18:26 Pulse Oximetry 95 09/08/24 18:26 Oxygen Delivery Room Air 09/08/24 18:26 Temperature 98.2 F 09/10/24 04:52 Pulse Rate 75 09/10/24 04:52 Respiratory Rate 17 09/10/24 04:52 Blood Pressure 111/53 L 09/10/24 04:52 Pulse Oximetry 94 09/10/24 08:34 Oxygen Delivery Room Air 09/10/24 09:06 Oxygen Flow Rate 2 09/09/24 09:12 MDM - Abdominal Pain MDM Narrative Medical decision making narrative: Patient presents with R flank and RLQ abdominal pain starting acutely this morning and associated with nausea and vomiting. In the emergency department they are afebrile with vital signs within normal limits. Very mild leukocytosis. No bacteria seen on urinalysis however there are white blood cells and 2+ leukocyte esterase. She is pacing around the hallway and in her room unable to get comfortable or be seated for an exam. This is suspicious for renal colic although differential as below: CT imaging as well as IV Dilaudid and ondansetron are ordered. Patient continued to have pain. Fentanyl Ordered. This is redosed later when still having pain and awaiting CT report. This patient presents with abdominal pain or unclear etiology. A CT scan was performed to evaluate for potential causes of the abdominal pain, however, neither the clinical exam nor the CT has identified an emergent etiology for the abdominal pain. Specifically, given the benign exam, the laboratory studies, and unremarkable CT, I have a very low suspicion for appendicitis, ischemic bowel, bowel perforation, or any other life threatening disease. The plan was to discharge patient however as attempt to titrate patient off of the oxygen that she required after desaturating after receiving initial opiate medication, she continues to desaturate into the high 80s. She has a history of COPD in on auscultation she has bilateral wheezes. Over the course of several hours Gave DuoNeb, albuterol, and steroid. Still unable to wean from oxygen without desaturating to high 80s despite her being fully awake and alert, not somnolent at all. Not dyspneic. She also continues to have pain despite receiving other non narcotic medications. Patient discussed with neuropsychology division chief hospitlist and admitted for further monitoring/management and possible O2 eval. Differential Diagnosis Differential diagnosis: Likely abdominal pain, acute appendicitis, calculus of kidney, constipation, diverticulitis and other (UTI, pyelonephritis; muscle spasm/musculoskeletal) Lab Data Attestation: I reviewed the patient's lab results. 09/10/24 04:46 09/10/24 04:46 Labs: Lab Results 09/08/24 09/08/24 Range/Units 20:28 20:57 WBC 10.3 H (4.5-10.0) K/mm3 RBC 3.90 L (4.2-5.4) M/mm3 Hgb 12.9 (12.0-15.0) g/dL Hct 39.7 (37.0-47.0) % MCV 101.8 H (80-100) fl MCH 33.1 (26-34) pg MCHC 32.5 (32-36) g/dl RDW 14.3 (11.5-14.5) % Plt Count 266 (150-375) k/mm3 MPV 10.4 (7.4-10.4) fl Immature Gran % (Auto) 0.4 (0-0.5) % Neut % (Auto) 70.8 (45.5-73.1) % Lymph % (Auto) 16.7 L (18.3-44.2) % [place] % (Auto) 8.2 (2.6-8.5) % Eos % (Auto) 3.2 (0-4.4) % Baso % (Auto) 0.7 (0.2-1.2) % Lymph # (Auto) 1.72 (0.9-3.2) K/mm3 [place] # (Auto) 0.8 H (0.1-0.6) K/mm3 Eos # (Auto) 0.3 (0-0.3) K/mm3 Baso # (Auto) 0.1 (0.0-0.1) K/mm3 Abs Immat Gran (auto) 0.04 H (0.00-0.031) K/mm3 Absolute Neuts (auto) 7.3 H (1.3-6.7) K/mm3 Absolute Nucleated RBC 0.000 (0.0-0.012) K/mm3 Nucleated RBC % 0.0 (0.0-0.2) % Sodium 138 (137-145) mmol/L Potassium 4.5 (3.4-5.0) mmol/L Chloride 104 (98-107) mmol/L Carbon Dioxide 25 (22-30) mmol/L Anion Gap 9 (4-12) mmol/L BUN 22 H (7-17) mg/dL Creatinine 0.75 (0.7-1.0) mg/dL Estim Creat Clear Calc 60 ml/min Estimated GFR > 60 (59 - ) Glucose 124 H (65-110) mg/dL Calcium 9.6 (8.4-10.2) mg/dL Total Bilirubin 0.3 (0.2-1.3) mg/dL AST 32 (14-36) U/L ALT 27 (6-35) U/L Alkaline Phosphatase 85 (38-126) U/L Total Protein 8.0 (6.3-8.2) g/dL Albumin 4.6 (3.5-5.1) g/dL Lipase 85 (23-300) U/L Urine Color Yellow (Yellow) Urine Appearance Clear (Clear) Urine pH 5.0 (5.0-9.0) Ur Specific [place] 1.024 (1.001-1.035) Urine Protein Negative (Negative) mg/dL Urine Glucose (UA) Negative (Negative) mg/dL Urine Ketones Trace H (Negative) mg/dL Ur Blood (Man) Negative (Negative) Urine Nitrate Negative (Negative) Urine Bilirubin Negative (Negative) Urine Urobilinogen 0.2 (<2.0) mg/dL Leukocyte Esterase Rfl 2+ H (Negative) VIVIEN/UL Urine RBC 0-2 (0-2) /hpf Urine WBC 21-50 H (0-3) /hpf Ur Squamous Epith Cells Occasional (Few) /hpf Urine Bacteria None seen /hpf Urine Casts 0-2 Imaging Data Radiologist's impression: ITS Impressions Abdomen/Pelvis CT 09/09/24 07:27 IMPRESSION: 1. No evidence of appendicitis, diverticulitis or intestinal obstruction. 2. Constipation. 3. Bilateral renal tiny cysts. Hip/Pelvis X-Ray 09/09/24 14:24 IMPRESSION: Degenerative disease without acute fracture or dislocation. CT Abd & Pelvis with contrast Stat Rad: Lung bases and heart within normal limits. Liver shows hepatic steatosis. Gallbladder within normal limits. Spleen within normal limits. Pancreas within normal limits. Adrenal glands within normal limits. Kidneys bilateral renal cysts. No hydronephrosis. Urinary bladder within normal limits. Gastrointestinal within normal limits. Appendix within normal limits. Vasculature: Atherosclerotic changes of the aorta. Lymphadenopathy within normal limits. Pelvic or meds within normal limits. Musculoskeletal degenerative changes. Impression no acute findings. Discharge Plan Discharge Clinical Impression: Abnormal urinalysis, Bilateral renal cysts, Acute right flank pain, Abdominal pain, RLQ, Hypoxia Patient Disposition: Still a Patient Condition: Stable Time of Disposition: 02:23
[2024-09-08] MEDS: HYDROmorphone HCL INJ (*CRX) 1 MG/ML SYR 0.5 MG IV PUSH (21:55)
[2024-09-08] MEDS: ONDANSETRON INJ 4 MG/2 ML VIAL IV PUSH (21:55)
--- NOTE | 2024-09-08 22:40 | PC.NURSE ---
Pt asking for more pain meds. Reports her pain is a 10/10. MD aware.
[2024-09-08] MEDS: fentaNYL CITRATE INJ (*CRX) 100 MCG/2 ML VIAL 50 MCG IV PUSH (22:45)
[2024-09-09] VITALS (26 sets, daily range): BP systolic 107–141; BP diastolic 42–68; PULSE 69–87; RESP 14–20; TEMP 36.6–36.7; O2SAT 91–100; BMI 30.4; BMI 31.4
[2024-09-09] MEDS: fentaNYL CITRATE INJ (*CRX) 100 MCG/2 ML VIAL 50 MCG IV PUSH (01:11)
[2024-09-09] MEDS: ACETAMINOPHEN 500 MG TABLET 1000 MG PO (01:53)
[2024-09-09] MEDS: SULFAMETHOXAZOLE/TRIMETHOPRIM 800/160 MG DS TABLET 1 TAB PO (01:53)
[2024-09-09] MEDS: methocarbamoL 750 MG TABLET PO (01:53)
[2024-09-09] MEDS: DICYCLOMINE HCL 10 MG CAPSULE PO (01:54)
[2024-09-09] MEDS: KETOROLAC 15 MG/ML VIAL (*BKC) IV PUSH (01:54)
[2024-09-09] MEDS: diazePAM (*CRX) 5 MG TABLET 2.5 MG PO (02:48)
[2024-09-09] MEDS: IPRATROPIUM 0.5 MG/ALBUTEROL SULFATE 2.5 MG AMPUL.NEB 3 ML INHALATION (02:51)
[2024-09-09] MEDS: ALBUTEROL SULFATE NEB 2.5 MG/3 ML INH INHALATION (03:47)
[2024-09-09] MEDS: predniSONE 20 MG TABLET 40 MG PO (04:26)
[2024-09-09] MEDS: diazePAM (*CRX) 5 MG TABLET PO (04:26)
--- NOTE | 2024-09-09 05:18 | ADMGEN ---
This patient, Maria Luz Sims, was admitted to 2 Medical Room 242-. Patient/family oriented to hospital policies and general routines including ID bracelet, bed and alarms, visiting hours, pain management, procedures, bathroom and other care routines, personal items, smoking policy, room service/diet, and visiting hours. Information on how to activate the Rapid Response Team has been discussed. Patient/Family are encouraged to report perceived risks to care and to ask questions if they do not understand what they are told or what they should do.
--- NOTE | 2024-09-09 06:05 | P.HP_ITS ---
H&P: HPI History of Present Illness Date/Time: 09/09/24 06:05 Chief Complaint: Right hip pain Narrative: This is a pleasant 69-year-old female with a history of COPD, asthma, prior tobacco dependence, never on oxygen. Osteoporosis, prior use of corticosteroids. The patient reports sudden onset of right hip pain in presented to [facility]. In the ER the patient complained to the staff of abdominal pain however upon examination in room 242 she persistently denies that. Therefore, the workup in the ER was focused on pyelonephritis and appendicitis. She has a very mildly elevated WBC at 10.3. A CT abdomen pelvis with contrast was performed which was unremarkable. She received Bactrim, Toradol which did not help so she subsequent receive multiple doses of Dilaudid fentanyl dicyclomine Tylenol methocarbamol and Valium. Also received DuoNebs and prednisone. Patient reports never using oxygen and does not have any upper respiratory symptoms or cough or fever. After the pain medication administration the patient's required 2 L nasal cannula supplementation. She denies any fractures of either hip in the past. Denies any recent trauma. She describes the pain as sharp and exquisitely tender to touch or movement same her right hip but pointing towards her right iliac crest. She denies any lower back pain or mid back pain. Denies any loss in sensation or focal weakness. Denies loss of urine or stool. Patient is aware of the risk of the pain medications and at this time declines for continuous pulse oximetry. Review of Systems Review of Systems: All systems reviewed & are unremarkable except as noted in HPI and below (HPI) [facility] Past Medical History Medical History Asthma Chronic hepatitis C without hepatic coma COPD (chronic obstructive pulmonary disease) SOB (shortness of breath) Vasomotor rhinitis Wheezing Surgical History Surgical History History of hand surgery Trigger finger surgery Family History Family History Sibling Family history of liver disease Other Asthma Social History Social History Social History: She has returned to smoking with the recent of her . She has over a 40 pack smoking history Smoking packs per day: 0.5 Smoking cigarettes per day: 10.0 Years smoked: 20 Smoking pack-years: 10.00 Smoking status: Never smoker Tobacco type: cigarettes (1 pack lasts a day) Second hand tobacco smoke exposure: No Alcohol intake: current Drinks per week: 1 Substance use: never Do You Feel Safe in your Home?: No Lack of Transportation: No Lack of Food: Never True Current Housing: I Have Housing Concerned About Future Housing: No Difficulty Paying Gas/Electric Bills: No Difficulty Paying for Meds: No Currently Unemployed: No Education: High School Diploma/GED Difficulty w/ Childcare or Family Care: No Spiritual care concerns: No Meds Home Medications and Allergies Home Medications ?Medication ?Instructions ?Recorded ?Confirmed ?Type omeprazole 20 mg capsule,delayed 20 mg PO DAILY 06/07/19 09/09/24 History release fluticasone propionate 50 2 spray intranasal DAILY #9.9 mL 10/28/20 09/09/24 Rx mcg/actuation nasal spray,suspension fluticasone 250 mcg-salmeterol 50 See Rx Instructions .Route 04/24/21 09/09/24 Rx mcg/dose blistr powdr for .COMPLEX ##60 inhalation (Wixela Inhub) ibandronate 150 mg tablet 150 mg PO MONTHLY #4 tabs 05/18/21 09/09/24 Rx albuterol sulfate 90 mcg/actuation See Rx Instructions .Route 06/04/21 09/09/24 Rx aerosol inhaler .COMPLEX ##25.5 cyclobenzaprine 10 mg tablet 10 mg PO TID PRN muscle spasm #60 09/07/21 09/09/24 Rx tabs ipratropium 0.5 mg-albuterol 3 mg 3 ml inhalation Q4H PRN shortness 10/19/21 09/09/24 Rx (2.5 mg base)/3 mL nebulization of breath or wheezing #270 mL soln acetaminophen 500 mg capsule 1,000 mg (2 x 500 mg) PO Q6H PRN 09/09/24 Rx pain #20 caps alendronate 70 mg tablet mg PO 09/09/24 History bupropion HCl 300 mg 24 hr tablet, mg PO 09/09/24 History extended release celecoxib 200 mg capsule mg 09/09/24 History dicyclomine 10 mg capsule 20 mg (2 x 10 mg) PO BID PRN 09/09/24 Rx abdominal pain #20 caps folic acid 1 mg tablet 09/09/24 History hydroxychloroquine 200 mg tablet mg PO 09/09/24 History ibuprofen 600 mg tablet 600 mg PO TID PRN pain #20 tabs 09/09/24 Rx metformin 500 mg tablet,extended mg PO 09/09/24 History release 24 hr methocarbamol 750 mg tablet 750 mg PO HS #7 tabs 09/09/24 Rx methotrexate sodium 2.5 mg tablet mg 09/09/24 History ondansetron 4 mg disintegrating 4 mg PO Q8H PRN nausea and 09/09/24 Rx tablet vomiting #7 tabs sulfamethoxazole 800 1 tablet PO Q12H 10 days #20 tabs 09/09/24 Rx mg-trimethoprim 160 mg tablet (Bactrim DS) Allergies Allergy/AdvReac Type Severity Reaction Status Date / Time No Known Allergies Allergy Verified 09/08/24 18:21 Vital Signs Vital Signs - 24 hr 09/08/24 18:26 09/08/24 22:00 09/08/24 22:01 Temperature 97.5 F L Pulse Rate 79 80 82 Respiratory Rate 20 13 14 Blood Pressure 118/68 142/75 H Pulse Oximetry 95 90 93 Oxygen Delivery Room Air Oxygen Flow Rate 09/08/24 22:02 09/08/24 22:09 09/08/24 22:10 Temperature Pulse Rate 79 Respiratory Rate 17 Blood Pressure Pulse Oximetry 95 81 L 94 Oxygen Delivery Room Air Nasal Cannula Oxygen Flow Rate 2 09/08/24 22:28 09/08/24 22:30 09/08/24 22:33 Temperature Pulse Rate 84 78 79 Respiratory Rate 19 16 17 Blood Pressure 150/74 H Pulse Oximetry 98 98 98 Oxygen Delivery Oxygen Flow Rate 09/08/24 22:45 09/08/24 23:00 09/08/24 23:00 Temperature Pulse Rate 78 86 74 Respiratory Rate 15 18 17 Blood Pressure 137/79 Pulse Oximetry 99 98 99 Oxygen Delivery Oxygen Flow Rate 09/08/24 23:01 09/08/24 23:31 09/08/24 23:45 Temperature Pulse Rate 74 80 75 Respiratory Rate 15 19 19 Blood Pressure 134/80 Pulse Oximetry 100 Oxygen Delivery Oxygen Flow Rate 09/09/24 00:02 09/09/24 00:15 09/09/24 00:30 Temperature Pulse Rate 78 80 78 Respiratory Rate 16 15 17 Blood Pressure Pulse Oximetry 98 97 96 Oxygen Delivery Oxygen Flow Rate 09/09/24 01:00 09/09/24 01:15 09/09/24 01:56 Temperature Pulse Rate 78 73 78 Respiratory Rate 16 18 20 Blood Pressure Pulse Oximetry 97 Oxygen Delivery Oxygen Flow Rate 09/09/24 02:00 09/09/24 02:01 09/09/24 02:15 Temperature Pulse Rate 71 69 74 Respiratory Rate 16 19 15 Blood Pressure 141/68 H Pulse Oximetry 91 95 98 Oxygen Delivery Oxygen Flow Rate 09/09/24 02:54 09/09/24 03:08 09/09/24 03:15 Temperature Pulse Rate 87 76 76 Respiratory Rate 20 16 15 Blood Pressure Pulse Oximetry 99 98 Oxygen Delivery Oxygen Flow Rate 09/09/24 03:31 09/09/24 03:48 09/09/24 04:16 Temperature Pulse Rate 71 72 76 Respiratory Rate 15 20 17 Blood Pressure 114/60 Pulse Oximetry 100 99 Oxygen Delivery Oxygen Flow Rate 09/09/24 04:30 09/09/24 04:31 09/09/24 04:45 Temperature Pulse Rate 80 81 77 Respiratory Rate 15 14 17 Blood Pressure 128/63 Pulse Oximetry 100 100 99 Oxygen Delivery Oxygen Flow Rate 09/09/24 06:00 Temperature 98.0 F Pulse Rate 81 Respiratory Rate 18 Blood Pressure 135/42 L Pulse Oximetry 96 Oxygen Delivery Oxygen Flow Rate Exam Const: General: comfortable and no acute distress Other: A&O x3. Distress during movement of the right leg and spontaneously while lying still. Eyes: Pupils: Equal, round and reactive pupils present Neck: Neck: supple Resp: Effort & Inspection: normal respiratory effort Auscultation: clear to auscultation bilaterally Cardio: Rate: regular rate Rhythm: regular rhythm Heart sounds: no gallops, no murmurs and no rubs GI: GI Palp: Yes Soft to palpation and No Tenderness to palpation present (GI) : General: Yes bladder normal to palpation Other: No flank pain Neuro: Motor exam (neuro): 5/5 motor strength present throughout Sensory Exam: normal sensation Extrem: General: no edema Other: Unable to conduct active or passive motion of the right leg due to severe pain especially on extension of the right leg at the hip. Exquisite tenderness of the soft tissues above the right iliac crest in tubercle. H&P: Results Labs Labs: Short CBC 09/08/24 Range/Units 20:28 WBC 10.3 H (4.5-10.0) K/mm3 Hgb 12.9 (12.0-15.0) g/dL Hct 39.7 (37.0-47.0) % Plt Count 266 (150-375) k/mm3 BMP 09/08/24 20:57 Sodium 138 Potassium 4.5 Chloride 104 Carbon Dioxide 25 BUN 22 H Creatinine 0.75 Glucose 124 H Calcium 9.6 Liver Function 09/08/24 Range/Units 20:57 Total Bilirubin 0.3 (0.2-1.3) mg/dL AST 32 (14-36) U/L ALT 27 (6-35) U/L Alkaline Phosphatase 85 (38-126) U/L Albumin 4.6 (3.5-5.1) g/dL Urine 09/08/24 Range/Units 20:28 Urine Color Yellow (Yellow) Urine Appearance Clear (Clear) Urine pH 5.0 (5.0-9.0) Ur Specific [place] 1.024 (1.001-1.035) Urine Protein Negative (Negative) mg/dL Urine Glucose (UA) Negative (Negative) mg/dL Assessment and Plan Assessment and plan (1) Acute respiratory failure with hypoxia: Code(s): J96.01 - Acute respiratory failure with hypoxia Status: Acute (2) Acute right hip pain: Code(s): M25.551 - Pain in right hip Status: Acute Plan This is a pleasant 69-year-old female with a history of COPD, asthma, prior tobacco dependence, never on oxygen. Osteoporosis, prior use of corticosteroids. The patient reports sudden onset of right hip pain in presented to [facility]. In the ER the patient complained to the staff of abdominal pain however upon examination in room 242 she persistently denies that. Therefore, the workup in the ER was focused on pyelonephritis and appendicitis. She has a very mildly elevated WBC at 10.3. A CT abdomen pelvis with contrast was performed which was unremarkable. She received Bactrim, Toradol which did not help so she subsequent receive multiple doses of Dilaudid fentanyl dicyclomine Tylenol methocarbamol and Valium. Also received DuoNebs and prednisone. Patient reports never using oxygen and does not have any upper respiratory symptoms or cough or fever. After the pain medication administration the patient's required 2 L nasal cannula supplementation. She denies any fractures of either hip in the past. Denies any recent trauma. She describes the pain as sharp and exquisitely tender to touch or movement same her right hip but pointing towards her right iliac crest. She denies any lower back pain or mid back pain. Denies any loss in sensation or focal weakness. Denies loss of urine or stool. Patient is aware of the risk of the pain medications and at this time declines for continuous pulse oximetry. ----- Patient currently requires 2 L nasal cannula although is breathing comfortably. This is likely due to a combination of existing COPD and asthma and an abundance of analgesia required in the ER. Continue to monitor and wean O2 per protocol. Home O2 eval if necessary. CT abdomen pelvis with contrast performed in ER. Preliminary read does not reveal any bony abnormalities however we are awaiting official read. Attempted to contact Radiology Department however unable to reach them. Will defer to day team to speak with Radiology to ensure that the bony structures are given attention. While her right iliac crest surrounding soft tissue is exquisitely tender there is no tenderness to palpation of the trochanteric bursa. Suspect soft tissue inflammation versus radiculopathy. No taut trigger point identified. May require MRI if pain continues to be debilitating. Bed rest. Tylenol, tramadol, Dilaudid p.r.n.. PT OT eval to be ordered when off bed rest. 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 We discussed adverse effects of medications. ----- SCDs. Full code. Regular diet. Saline lock IV. Hospitalist [facility] Advance Care Plan I have confirmed that the patient's Advanced Care Plan is present, code status is documented, or surrogate decision maker is listed in patient medical record.: Yes Medication Reconciliation I have utilized all available resources to obtain, update and review the patients current medications (includes all prescriptions, OTC, herbals, cannabis, and nutritional supplements).: Yes
[2024-09-09] MEDS: HYDROmorphone HCL INJ (*CRX) 1 MG/ML SYR 0.5 MG IV PUSH (06:43)
[2024-09-09] MEDS: FLUTICASONE PROPIONATE 0.05% NA SPR 16 GM BTL (*BKC) 2 SPRAY NASAL (08:16)
[2024-09-09] MEDS: PANTOPRAZOLE 40 MG TABLET PO (08:16)
[2024-09-09] MEDS: CYCLOBENZAPRINE HCL 10 MG TABLET PO (10:31)
--- NOTE | 2024-09-09 11:34 | P.PNCROSS_ITS ---
Event Note Event Note Event Note: Subjective: Patient reports sharp pain in her left hip and when lying on her left side. She denies any recent injury. She does have RA but has not had these symptoms before. Exam: General: In no acute distress, well nourished Head: atraumatic, no encephalopathy Eyes: PERRLA, sclera clear ENT: moist mucous membranes, nasal passages clear Neck: supple, no JVD, no adenopathy, trachea midline Cardiac: Normal S1 and S2. No murmur, gallops or friction rubs, peripheral pulses intact. Respiratory: Lungs clear to auscultation, no adventitious lung sounds, currently on 2L NC Gastrointestinal: soft, non-distended, non-tender, normoactive bowel sounds. : voiding without difficulty. Extremities: moves all extremities well, no edema Skin: clean, dry, intact. No wounds or lesions. Neuro: Alert and oriented x4, cranial nerves intact, no neuro deficits. Psych: normal mood, normal affect, interactive Plan: * UA shown trace ketones, 2+ leukocytes, 21-50 WBC's. She is asymptomatic for UTI, Urine culture was obtained. We will hold off on treatment for UTI * Abdomen/Pelvis CT was negative for appendicitis, diverticulitis, intestinal obstruction. Shown constipation and bilateral renal cysts which are small. * WBC 10.3, otherwise unremarkable labs * Will obtain bilateral hip x-rays * Add ESR and CRP * PT and OT ordered to eval and treat * Continue pain control
[2024-09-09] MEDS: traMADol HCL (*CRX) 50 MG TABLET PO (13:23)
[2024-09-09 15:12] LABS: CRP < 0.5 mg/dL (<1.0)
[2024-09-09 15:18] LABS: Erythrocyte Sedimentation Rate 48 mm/hr (0-20)
[2024-09-09] MEDS: FLUTICASONE/SALMETEROL 115-21 MCG INHALER 1 PUFF 2 PUFF INHALATION (20:17)
[2024-09-10] MEDS: traMADol HCL (*CRX) 50 MG TABLET PO (03:53)
[2024-09-10] MEDS: CYCLOBENZAPRINE HCL 10 MG TABLET PO (03:53)
[2024-09-10 04:52] VITALS: BP 111/53; PULSE 75; RESP 17; TEMP 36.8; O2SAT 96
[2024-09-10 05:40] LABS: Basophils Percent Auto 0.5 % (0.2-1.2); Eosinophils Absolute Auto 0.1 K/mm3 (0-0.3); Eosinophils Percent Auto 1.2 % (0-4.4); Hematocrit 35.1 % (37.0-47.0); Hemoglobin 11.4 g/dL (12.0-15.0); Immature Granulocyte Absolute 0.03 K/mm3 (0.00-0.031); Immature Granulocyte Percent A 0.4 % (0-0.5); Lymphocytes Absolute Auto 2.84 K/mm3 (0.9-3.2); Lymphocytes Percent Auto 35.4 % (18.3-44.2); Mean Corpuscular HGB Conc 32.5 g/dl (32-36); Mean Corpuscular Hemoglobin 32.7 pg (26-34); Mean Corpuscular Volume 100.6 fl (80-100); Mean Platelet Volume 10.2 fl (7.4-10.4); Monocytes Absolute Auto 0.9 K/mm3 (0.1-0.6); Monocytes Percent Auto 11.2 % (2.6-8.5); Neutrophils Absolute Auto 4.1 K/mm3 (1.3-6.7); Neutrophils Percent Auto 51.3 % (45.5-73.1); Platelet Count Result 234 k/mm3 (150-375); Red Blood Count 3.49 M/mm3 (4.2-5.4); Red Cell Distribution Width 14.1 % (11.5-14.5)
[2024-09-10 05:52] LABS: Alanine Aminotransferase 21 U/L (6-35); Albumin Level 4.1 g/dL (3.5-5.1); Alkaline Phosphatase 63 U/L (38-126); Anion Gap 6 mmol/L (4-12); Aspartate Amino Transferase 26 U/L (14-36); Bilirubin,Total 0.4 mg/dL (0.2-1.3); Blood Urea Nitrogen 18 mg/dL (7-17); Calcium 9.1 mg/dL (8.4-10.2); Carbon Dioxide 30 mmol/L (22-30); Chloride 101 mmol/L (98-107); Estimated CRCL calculation 61 ml/min; Estimated Glomerular Filt Rate > 60; Glucose 106 mg/dL (65-110); Potassium 3.8 mmol/L (3.4-5.0); Sodium 137 mmol/L (137-145)
[2024-09-10 08:12] VITALS: O2SAT 93
[2024-09-10] MEDS: FLUTICASONE/SALMETEROL 115-21 MCG INHALER 1 PUFF 2 PUFF INHALATION (08:12)
[2024-09-10 08:34] VITALS: O2SAT 94
[2024-09-10] MEDS: PANTOPRAZOLE 40 MG TABLET PO (08:34)
[2024-09-10] MEDS: FLUTICASONE PROPIONATE 0.05% NA SPR 16 GM BTL (*BKC) 2 SPRAY NASAL (08:34)
--- NOTE | 2024-09-10 13:05 | P.DS_ITS ---
DS: Admitting Diagnosis Discharge Date 09/10/24 Admitting Diagnosis Acute respiratory failure with hypoxia Acute right hip pain DS: Discharge Diagnosis Discharge Diagnosis (1) Acute respiratory failure with hypoxia: Code(s): J96.01 - Acute respiratory failure with hypoxia Status: Acute (2) Acute right hip pain: Code(s): M25.551 - Pain in right hip Status: Acute DS: Summary Hospital Course Reason for hospitalization: Acute respiratory failure with hypoxia Acute right hip pain Hospital Course: This is a 69-year-old female with a significant past medical history of COPD, asthma, former smoker, osteoporosis who presented to the hospital with right hip pain and abdominal pain. Workup in the hospital included an abdomen/pelvis CT which was negative for any appendicitis, diverticulitis, intestinal obstruction, showed constipation and bilateral renal cyst which were noted to be small. Bilateral hip and pelvis x-ray showed degenerative disease without acute fracture dislocation, osteoarthritis. Initial labs showed a white blood cell count of 10.3, ESR 48. UA was obtained which showed trace urine ketones, 2+ leukocyte, 21-50 urine WBC. Urine culture was obtained and was negative for any bacteria. Patient was given pain medications and was seen by PT and OT. Patient states she is feeling much better today. 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 She is stable for discharge at this time. I did recommend that she follow-up with her primary care doctor to see an orthopedic surgeon as they may be able to give her cortisone injection into the left hip if her pain persists. Final diagnosis: osteoarthritis of left hip Status at Discharge Cognitive/behavioral status at discharge: alert and oriented x4 Functional status at discharge: independent ambulation Overall status at discharge: patient is progressing back to baseline Time Spent with Patient Time attestation: Total time spent providing and/or coordinating discharge services: Time spent: Greater than 30 minutes Exam Narrative: General: In no acute distress, well nourished Cardiac: Normal S1 and S2. No murmur, gallops or friction rubs, peripheral pulses intact. Respiratory: Lungs clear to auscultation, no adventitious lung sounds, currently on room air Gastrointestinal: soft, non-distended, non-tender, normoactive bowel sounds. : voiding without difficulty.. Neuro: Alert and oriented x4 DS: Data Data Completed and Pending Completed studies during hospitalization: hip/pelvis x-ray Abdomen/Pelvis CT Pending studies at discharge: None Labs on day of discharge: Labs from last 24 hours 09/10/24 09/09/24 04:46 14:51 WBC 8.0 RBC 3.49 L Hgb 11.4 L Hct 35.1 L MCV 100.6 H MCH 32.7 MCHC 32.5 RDW 14.1 Plt Count 234 MPV 10.2 Immature Gran % (Auto) 0.4 Neut % (Auto) 51.3 Lymph % (Auto) 35.4 Hunt % (Auto) 11.2 H Eos % (Auto) 1.2 Baso % (Auto) 0.5 Lymph # (Auto) 2.84 Hunt # (Auto) 0.9 H Eos # (Auto) 0.1 Baso # (Auto) 0.0 Abs Immat Gran (auto) 0.03 Absolute Neuts (auto) 4.1 Absolute Nucleated RBC 0.000 Nucleated RBC % 0.0 ESR 48 H Sodium 137 Potassium 3.8 Chloride 101 Carbon Dioxide 30 Anion Gap 6 BUN 18 H Creatinine 0.74 Estim Creat Clear Calc 61 Estimated GFR > 60 Glucose 106 Calcium 9.1 Total Bilirubin 0.4 AST 26 ALT 21 Alkaline Phosphatase 63 C-Reactive Protein < 0.5 Total Protein 7.0 Albumin 4.1 Procedures/Treatments: None Discharge Plan Discharge Attending physician on discharge: Michelle Champagne Consulting providers: Albino Sadler Discharging Clinician: Emelina Gonzalez Anticipated Discharge Date/Time: 09/10/24 12:58 Patient Disposition: Home Activity: as tolerated Diet: as tolerated and regular Discharge Instructions: * You were found to have osteoarthritis of the right hip * Continue taking anti-inflammatory medication such as Ibuprofen at home * Follow up with your primary care doctor in 1 week * Get referral to patient transition specialist as they may be able to give cortisone injection directly in the hip to get relief. Patient Instructions: Osteoarthritis (DC) Patient Language: Thai Stand Alone Forms: General Discharge Information Follow-up/Referrals: Arden,Donna Andrews NP [Primary Care Provider] - 1 Week (will need referral to see patient transition specialist ) Discharge Medications: New ibuprofen 600 mg tablet 600 mg PO TID PRN (Reason: pain) Qty: 20 0RF acetaminophen 500 mg capsule 1,000 mg PO Q6H PRN (Reason: pain) Qty: 20 0RF tramadol 50 mg Tablet 50 mg PO Q6H PRN (Reason: Pain Rated 4-6) Qty: 24 0RF Continued omeprazole 20 mg capsule,delayed release(DR/EC) 20 mg PO DAILY alendronate 70 mg tablet 70 mg PO WEEKLY celecoxib 200 mg capsule 200 mg PO Q12H methotrexate sodium 2.5 mg tablet 2.5 mg PO folic acid 1 mg tablet 1 mg PO WEEKLY hydroxychloroquine 200 mg tablet 400 mg PO DAILY metformin 500 mg tablet extended release 24 hr 500 mg PO DAILY bupropion HCl 300 mg tablet extended release 24 hr 300 mg PO DAILY fluticasone propionate 50 mcg/actuation spray,suspension 2 spray NASAL DAILY Qty: 9.9 0RF fluticasone propion-salmeterol [Wixela Inhub] 250-50 mcg/dose blister with device See Rx Instructions .ROUTE .COMPLEX Qty: 60 4RF Dose Instruction: INHALE 1 PUFF BY MOUTH TWICE A DAY Rx Instructions: INHALE 1 PUFF BY MOUTH TWICE A DAY ibandronate 150 mg tablet 150 mg PO MONTHLY Qty: 4 4RF albuterol sulfate 90 mcg/actuation HFA aerosol inhaler See Rx Instructions .ROUTE .COMPLEX Qty: 25.5 3RF Dose Instruction: INHALE 2 PUFFS BY MOUTH EVERY 4-6 HOURS NEEDED Rx Instructions: INHALE 2 PUFFS BY MOUTH EVERY 4-6 HOURS NEEDED cyclobenzaprine 10 mg tablet 10 mg PO TID PRN (Reason: muscle spasm) Qty: 60 0RF ipratropium-albuterol 0.5 mg-3 mg(2.5 mg base)/3 mL solution for nebulization 3 ml INHALATION Q4H PRN (Reason: shortness of breath or wheezing) Qty: 270 4RF Date of admission: 09/09/24 03:57 Primary Care Provider: Arden,Donna Andrews Admitting Provider: Karely Hubbard Attending physician on admission: Emelina Gonzalez Condition: Improved Hospitalist MIPS Heart Failure (Exclusion) Patient has history of Heart Transplant or Left Ventricular Assistive Device?: No IF YES, STOP HERE Heart Failure (Qualifier) Patient has current or prior documentation of LVEF less than or equal to 40%, or mod/servere depressed LVSF?: No IF NO, STOP HERE
== END 2024-09-10 14:07 | disposition home or self-care (01) ==
LOC: ANHED 09-09 02:20 → ANH2MED 09-09 08:45
PROVIDERS: Admitting Provider General Practice; Emergency Provider Student in an Organized Health Care Education/Training Program; PCP Nurse Practitioner Family; Visit Provider Nurse Practitioner Acute Care
DX: M16.11 Unilateral primary osteoarthritis, right hip (principal); J96.01 Acute respiratory failure with hypoxia; M25.552 Pain in left hip; M81.0 Age-related osteoporosis without current pathological fracture; J44.9 Chronic obstructive pulmonary disease, unspecified; J30.0 Vasomotor rhinitis; F17.210 Nicotine dependence, cigarettes, uncomplicated; B18.2 Chronic viral hepatitis C; R82.90 Unspecified abnormal findings in urine; N28.1 Cyst of kidney, acquired; Z79.51 Long term (current) use of inhaled steroids; Z79.899 Other long term (current) drug therapy
CPT/HCPCS: 36415; 73521; 74177; 80053; 81001; 83690; 85025; 85652; 86140; 87086; 94640; 96365; 96374; 96375; 96376; 97165; 99285; A9270; G0378; J0696; J1171; J1885; J2405; J3010; J7512; Q9967

== ENCOUNTER 2024-10-16 09:52 | Outpatient (CLI) | payer MEDICARE, SELFPAY ==
--- NOTE | ~2024-10-16 | XR_ITS ---
Left foot Technique: AP, oblique, and lateral views were obtained. Clinical History: Injury Findings: No acute fracture or dislocation is seen. Osseous alignment is anatomic. Joint spaces are p reserved without erosive or degenerative change. Soft tissues are unremarkable. Impression: Unremarkable left foot radiographs. Reviewed, dictated and finalized at location . Impression: Unremarkable left foot radiographs.
--- OUTSIDE RECORDS SUMMARY | 2024-10-16 10:04 | XMS_ITS | Continuity of Care Document ---
Author Organization [facility] Address [id number] [place] [address] [address] [place] [address] Phone Care Team Providers Care Dog Licenser Name Role Phone Jose Natarajan Unavailable Unavailable Advance Directives Directive Yes / No Effective Date File Name No Information Encounters Encounter Description Practice Location Reason(s) For Visit Diagnoses Date Provider Providers Copied on Encounter [facility], [address], [place], [place], [id number], [place] tel:[phone] [facility] No Information Jul-0 7-200 3 Doisy Edward. [address] [address] , [address], [place], [address], [place]. tel:[phone] Family History Family Member Type Diagnosis Age [...]
--- OUTSIDE RECORDS SUMMARY | 2024-10-16 10:05 | XMS_ITS | Clinical Summary ---
Author Organization [facility] al Address [address] [place] [address] Care Team Providers Care [employer] Name Role Phone Donna Her NP Primary Care Provider [phone] Allergies No known active allergies Medications albuterol HFA (PROVENTIL HFA,VENTOLIN HFA,PROAIR HFA) 90 mcg/actuation inhaler 023 Active alendronate (FOSAMAX) 70 mg tablet TAKE 1 TABLET BY MOUTH ONE TIME PER WEEK 023 Active buPROPion XL (WELLBUTRIN XL) 300 mg 24 hr tablet Take 1 tablet (300 mg total) by mouth daily 023 Active celecoxib (CeleBREX) 200 mg capsule 023 Active Breo Ellipta 200-25 mcg/dose diskus inhaler INHALE 1 PUFF ONCE DAILY 023 Active ipratropium-albut Chago (DUO-NEB) 0.5-2.5 mg/3 mL nebulizer solution USE 1 AMPULE IN NEBULIZER EVERY 4 HOURS NEEDED FOR SHORTNESS OF BREATH OR WHEEZING 023 Active metFORMIN XR (GLUCOPHAGE XR) 500 mg 24 hr tablet Take 1 tablet (500 mg total) by mouth 2 (two) times a day 023 Active phentermine (ADIPEX-P) 37.5 mg tablet Take 1 tablet (37.5 mg total) by mouth daily 023 Active cetirizine (ZyrTEC) 5 mg tablet Take 1 tablet (5 mg total) by mouth daily Active HYDROcodone-aceta minophen (NORCO) 5-325 mg per tablet Take by mouth every 6 (six) hours as needed Active ondansetron ODT (ZOFRAN-ODT) 8 mg disintegrating tablet DISSOLVE 1 TABLET ON THE TONGUE EVERY 4-6 HOURS NEEDED Active triamcinolone (KENALOG) 40 mg/mL injection Take 40 mg by injection route. 023 Active upadacitinib (Rinvoq) 15 mg tablet extended release 24 hr Take 15 mg by mouth gold nib grinder before breakfast 30 tablet 6 024 Active Additional Information Patient not taking.Reported on 08/08/2024 Ozempic 0.25 mg or 0.5 mg (2 mg/3 mL) pen injector injection 024 Active ondansetron ODT (ZOFRAN-ODT) 4 mg disintegrating tablet 024 Active hydroxychloroquin e (PLAQUENIL) 200 mg tablet Take 2 tablets by mouth once daily 60 tablet 2 025 Active folic acid (FOLVITE) 1 mg tablet Take 2 tablets by mouth once daily 180 tablet 025 Active methotrexate 2.5 mg tablet TAKE 8 TABLETS BY MOUTH ONCE A WEEK 32 tablet 3 025 Active methotrexate 2.5 mg tablet TAKE 8 TABLETS BY MOUTH ONCE A WEEK 32 tablet 3 025 2024 Discontinued folic acid (FOLVITE) 1 mg tablet Take 2 tablets by mouth once daily 180 tablet 025 2024 Discontinued Active Problems Problem Noted Date Diagnosed Date Memory disturbance 04/19/2024 Gait disorder 04/19/2024 History of hepatitis C 02/02/2023 Overview (02/02/2023): Treated by Dr Hunter Pulmonary emphysema 02/02/2023 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 5[address] [place] [address] [place] [address] Rheumatoid arthritis, involving unspecified site, unspecified whether rheumatoid factor present (HCC); High risk medication use 08/08/2024 11:00 AM ACID PUMPER Office Visit [facility] Rheumatology [address] [facility] 5[address] [place] [address] [place] [address] Marti Gaspar MD Rheumatoid arthritis, involving unspecified [...] on file Legal Sex Female 8:25 AM ACID PUMPER Gender Identity Not on file Sexual Orientation Not on file Obstetrics History Last Filed Vital Signs Vital Sign Reading Time Taken Comments Blood Pressure 131/81 08/08/2024 11:03 AM ACID PUMPER Pulse 93 08/08/2024 11:03 AM ACID PUMPER Temperature 36.7 C (98.1 F) 09/07/2023 9:51 AM CDT Respiratory Rate - - Oxygen Saturation 96% 02/08/2024 10:49 AM CDT Inhaled Oxygen Concentration - - Weight 79.8 kg (176 lb) 08/08/2024 11:03 AM ACID PUMPER Height 160 cm (5' 3 ) 08/08/2024 11:03 AM ACID PUMPER Body Mass Index 31.18 08/08/2024 11:03 AM ACID PUMPER Plan of Treatment Health Maintenance Due Date Last Done Comments Breast Cancer Screening-Mammogram 1955 Colon Cancer Screening-Colonoscopy 1955 Depression Screening 1955 Fall Risk Assessment 1955 Osteoporosis Screening-Bone Density Scan 1955 DTaP/Tdap/Td Vaccine (1 - Tdap) 1964 Hepatitis B Screening 1971 Well Visit 65+ 2018 Covid-19 Vaccine (4 - 2023-2 5 season) 2024 04/13/2021, 08/04/2020, 07/07/2020 Influenza Vaccine (Season Ended) 2025 03/16/2023, 02/23/2022, 03/07/2020, Additional history exists Zoster Vaccine Completed 07/10/2019, 03/07, 03/12/2017 Pneumococcal vaccine 65+ Completed 10/24/2019, 09/04 Hepatitis C Screening Completed 02/02/2023, 023 Procedures Procedure Name Priority Date/Time Associated Diagnosis Comments COMPREHENSIVE METABOLIC PANEL Routine 08/08/2024 11:33 AM ACID PUMPER Rheumatoid arthritis, involving unspecified site, unspecified whether rheumatoid factor present (HCC) High risk medication use CBC WITH AUTO DIFFERENTIAL Routine 08/08/2024 11:33 AM ACID PUMPER Rheumatoid arthritis, involving unspecified site, unspecified whether rheumatoid factor present (HCC) High risk medication use HEPATITIS C RNA, QUANTITATIVE, PCR Routine 02/02/2023 1:01 PM CDT Rheumatoid arthritis, involving unspecified site, unspecified whether rheumatoid factor present (HCC) Vitamin D deficiency from Last 3 Months or Most Recently Relevant to Health Maintenance Results * (ABNORMAL) CBC with auto differential (08/08/2024 11:33 AM ACID PUMPER) White Blood Count 6.4 3.6 - 11.2 [...] - [facility] Blood 08/08/2024 11:3 3 AM ACID PUMPER 08/08/2024 12:47 PM ACID PUMPER us Marti Gaspar MD LAB BLOOD ORDERABLES Final Result [facility] * (ABNORMAL) Comprehensive metabolic panel (08/08/2024 11:33 AM ACID PUMPER) Pathologist [facility] Total Protein 7.5 6.1 - 8.4 g/dL [...] - [facility] Blood 08/08/2024 11:3 3 AM ACID PUMPER 08/08/2024 12:47 PM ACID PUMPER us Marti Gaspar MD LAB BLOOD ORDERABLES Final Result [facility] * Hepatitis C (HCV) RNA PCR, quantitative Blood (02/02/2023 1:01 PM CDT) Pathologist [facility] HCV RNA result Not Detected [facility] Comment: The quantifiable range of this assay is 15 IU/mL to 100,000,000 IU/mL (1.18 log IU/mL to 8.00 log IU/mL). Testing was performed by the [id number] HCV Test ([employer] Testing performed at [facility] Current Interpretive Data was last revised on 2021 Blood 02/02/2023 1:01 PM CDT 02/02/2023 1:22 PM CDT us Marti Gaspar MD LAB MICROBIOLOGY - GENERAL ORDERABLES Final Result [facility] Department [place] [address] [facility] from Last 3 Months or Most Recently Relevant to Health Maintenance Insurance [employer] MEDICARE [facility] GOLD Care Teams [employer] Relationship Specialty Start Date End Date Donna Her NP [address] [id number] PCP - General Family Medicine 04/03/24
--- OUTSIDE RECORDS SUMMARY | 2024-10-16 10:05 | XMS_ITS | Data Portability ---
Author Organization [place] [facility], Main Office Address [address] [place] [address] Assessment No assessment recorded. Plan of Treatment Reminders Order Date Submit Date Provider Last Modified By Organization Details Last Modified Time Details Appointments Physical/ Annual Wellness 30 2024 03:00P Sharif Her NP Not available Not available Not available Lab glycohemo globin, total, blood [address] (Lab), [address] [place], [address], 12/27/2023 10:36:12 BMP, serum or plasma [address] (Lab), [address] [place], [address], 12/27/2023 10:36:24 glycohemo globin, total, blood 2022 023 [facility] (Lab), [address] [place], [address], 03/28/2023 20:25:17 BMP, serum or plasma 2022 023 [facility] (Lab), [address] [place], [address], 03/28/2023 19:29:[address] referral - Please call patient to schedule an appointme nt with Dr. Xavier. Thank you. 2023 024 [facility] [address], [place], [address], 04/19/2024 10:32:03 dermatolo gist referral - Please call patient to schedule an appointme nt. Thank you. 2023 [email or web address] Courtney Melo MD (Dermatology) , [address], [facility], [place], [address], 01/24/2024 08:34:12 Procedures None recorded. Surgeries None recorded. Imaging CT, head + brain, w/o contrast - *Denied* 2023 [email or web address] [facility] (Imaging), [address], [place], [address], 04/03/2024 12:25:58 Medication Orders ondansetr on 4 mg disintegr ating tablet 2023 [facility] [place], [address], 03/22/2024 10:25:41 metformin ER 500 mg tablet,ex tended release 24 hr 2023 024 [facility], [address] [place], [address], 03/22/2024 10:25:43 phentermi ne 37.5 mg tablet 2023 [facility], [address] [place], [address], 12/27/2023 10:18:26 Ozempic 0.25 mg or 0.5 mg (2 mg/3 mL) subcutane ous pen injector 2023 024 [id number], [address] , [place], [place], [id number], 10/10/2023 13:32:27 metformin ER 500 mg tablet,ex tended release 24 hr 2022 023 [facility] #[id number], [address] [facility] [place], [place], [place], [id number], 09/26/2023 10:15:40 Patient TargetsNo targets recorded. Patient InstructionsNo instructions recorded. Reason for Referral Commissioned [employer] Referral for S kin lesion abnormal mole to middle back, right inner thigh Please call patient to schedule an appointment. Thank you. Referring Physician: Reji Reece, [facility], Encounter Date: 12/27/2023 Neurologist Referral for Mem ory impairment Please call patient to schedule an appointment with Dr. Xavier. Thank you. Referring Physician: Donna Her, [facility], Encounter Date: 03/22/2024 Results Created Date Observation Date Name Description Value Unit Range Abnormal Flag Note LastModifiedBy Organization Detail LastModifiedTime 03/28/2003/28/2023 BASIC METAB OLIC PANEL sodium 137 mmol/ L 137-14 5 Not Available [facility] (Lab) [address] [place], [address], 03/28/2023 19:29:05 03/28/2003/28/2023 BASIC METAB OLIC PANEL potassium 4.5 mmol/ L 3.5-5. 1 Not Available [facility] (Lab) [address] [place], [address], 03/28/2023 19:29:05 03/28/2003/28/2023 BASIC METAB OLIC PANEL chloride 104 mmol/ L 98-107 Not Available [facility] (Lab) [address] [place], [address], 03/28/2023 19:29:05 03/28/2003/28/2023 BASIC METAB OLIC PANEL carbon dioxide 26 mmol/ L 22-30 Not Available [facility] (Lab) [address] [place], [address], 03/28/2023 19:29:05 03/28/2003/28/2023 BASIC METAB OLIC PANEL anion gap 11.5 mmol/ L 14-22 low Not Available [facility] (Lab) [address] [place], [address], 03/28/2023 19:29:05 03/28/2003/28/2023 BASIC METAB OLIC PANEL glucose 103 mg/dL 70-99 high Not Available [facility] (Lab) [address] [place], [address], 03/28/2023 19:29:05 03/28/2003/28/2023 BASIC METAB OLIC PANEL BUN 22 mg/dL 8-19 high Not Available [facility] (Lab) [address] [place], [address], 03/28/2023 19:29:05 03/28/2003/28/2023 BASIC METAB OLIC PANEL creatinine 0.68 mg/dL 0.66-1 .25 Not Available [facility] (Lab) [address] [place], [address], 03/28/2023 19:29:05 03/28/2003/28/2023 BASIC METAB OLIC PANEL GFR >60 Refer ence Range : [place] ge GFR Healt hy Adult : >60 [...] calcu lator is avail able on the [facility] websi te: https ://andi hawkins.o rg/pr ofess ional s/kdo qi/gf r_cal culat or Not Available [facility] (Lab) [address] [place], [address], 03/28/2023 19:29:05 03/28/2003/28/2023 BASIC METAB OLIC PANEL calcium 10.1 mg/dL 8.4-10 .2 Not Available [facility] (Lab) [address] [place], [address], 03/28/2023 19:29:05 03/28/2003/28/2023 HEMOG LOBIN A1C HA1C 6.0 % 4.0-6. 0 Diabe julio Scree jose Crite marty: <5.7% Consi stent with absen ce of diabe julio 5.7-6 .4% Consi stent with incre ased risk for diabe julio (pred iabet es) >OR=6 .5% Consi stent with diabe julio REFER ENCE: Diabe julio Care 2016, 39(Rodriguez ppl.1 ):s13 -s22 Not Available [facility] (Lab) [address] [place], [address], 03/28/2023 20:25:16 07/05/19 24 07/05/2023 COLOG UARD [...] of 10,00 0 indiv idual s at [place] ge risk for color ectal cance r who were scree avery with both Colog uard and colon oscop y. (Kely Farah et al, N Engl J Med 2014; 370(1 4):12 86-12 97) The carmen l value (refe rence range ) for this assay is negat ed. COLOG UARD RE-SC ADE DENNISON RECOM MENDA TION: Perio dic color ectal cance r scree jose is an impor tant part of preve ntive healt hcare for asymp tomat ic indiv idual s at [place] ge risk for color ectal cance r. Follo wing a negat ed Colog uard resul t, the Ameri can Cance r Socie ty and U.S. Multi -Soci ety Task Force scree jose guide lines recom mend a Colog uard re-sc ade dennison inter roselia of 3 years . Refer ences : Ameri can Cance r Socie ty Guide line for Color ectal Cance r Scree jose: https ://ww w.can cer.o rg/ca ncer/ colon -rect al-ca ncer/ detec tion- diagn osis- stagi ng/ac s-rec ommen datio ns.ht ml.; Albert GERARDO, Kye regan CR, Darya richardson JK, Color ectal Cance r Scree jose: Recom menda tions for Physi cians and Patie nts from the U.S. Multi -Soci ety Task Force on Color ectal Cance r Scree jose , Am Won cerdantsony rolog y 2017; 112:1 016-1 030. TEST DESCR IPTIO N: [place] site algor ithmi c roger sis of [...] years or older , who are at [facility] for color ectal cance r (CRC) . Colog uard has been appro humera for use by the U.S. FDA. The perfo rmanc e of Colog uard was estab lishe d in a cross secti onal study of [facility] adult s aged 50-84 . Colog uard perfo rmanc e in patie nts ages 45 to 49 years was estim ated by noe-g fox roger sis of near- age group s. [...] cross -sect ional scree jose study of 10,00 0 indiv idual s at [facility] risk for color ectal cance r who were scree avery with both Colog uard and colon oscop y. (Kely Gray al, N Engl J Med 2014; 370(1 [...] uard perfo rmanc e data in a 10,00 0 patie nt pivot al study using colon oscop y as the refer ence metho d can be acces sed at the follo wing locat ion: www.e xactl abs.c om/re sults . Addit ional descr iptio n of the Colog uard test proce ss, warni ngs and preca ution s can be found at www.c ologu nathan.c om. Not Available [facility] (Cologuard Orders Only) [address], [place], [address], 07/14/2023 10:37:51 02/17/20 23 02/15/2023 LDCT, chest , for lung cance r scree jose No observ ation record ed. [address], [address], 02/24/2023 09:39:52 03/22/20 23 03/22/2023 DEXA No observ ation record ed. [email or web address] [address] [place] [address], [address], 10/14/2023 10:48:06 03/22/20 23 03/22/2023 DEXA No observ ation record ed. [address] [place] [address], [address], 04/12/2023 14:32:46 05/13/20 23 05/13/2023 CT, chest , w/o contr ast No observ ation record ed. [email or web address] [address] [place] [address], [address], 05/19/2023 17:54:59 12/27/19 24 12/27/2023 MAMMO , diagn ostic , digit al, bilat eral No observ ation record ed. [email or web address] [address] [place] [address], [address], 12/28/2023 09:22:25 05/18/20 24 05/18/2024 MRI, brain + brain stem, w/o contr ast No observ ation record ed. [email or web address] [facility] [address], [place], [address], 05/18/2024 19:23:05 09/10/19 25 09/09/2024 XR, hip + pelvi s, bilat eral, 2 view No observ ation record ed. [facility] [address] [facility] [address], [place], [address], 09/10/2024 09:21:21 Result Notes None recorded. Problems Name Problem SNOMED Code Status Onset Date Resolution Date Notes Provider Name and Address Organization Details Recorded Time Chronic obstructiv e pulmonary disease 02656848 Active 2021 Not Available [facility] 3 12:49:03 Acquired trigger finger 9132034 Active Not Available [facility] 3 12:49:03 Asthma 121139299 Active 2021 Not Available [facility] 3 12:49:03 Osteopenia 492411010 Active 2021 Not Available [facility] 3 12:49:03 Rheumatoid arthritis 78464564 Active 2021 Not Available [facility] 3 12:49:03 Pain in limb 00198439 Active Not Available [facility] 3 12:49:03 Pain of right wrist 4969595607314 00 Active 2022 NELY Amos, [facility] 3 12:11:51 Carpal tunnel syndrome of right wrist 8560721805735 08 Active 2022 NELY Amos, [facility] 3 12:12:00 Bilateral carpal tunnel syndrome 6535036249583 9101 Active 2022 NELY Colin, [facility] 3 14:19:47 Osteoporos is 83063263 Active 2022 Jacklyn Dasilva MD [address], [place], [address] , [employer] 3 13:55:51 Mood disorder 93642844 Active 2022 GUANAKITO Morales [address], [place], [address] , [employer] 3 09:35:20 Prediabete s 577365929 Active 2022 Jacklyn Dasilva MD [address], [place], [address] , [employer] 3 09:13:25 Lung mass 435514510 Active 2022 Jacklyn Dasilva MD [address], [place], [address] , [employer] 3 15:52:17 Diabetes mellitus 26332333 Active 2023 Jacklyn Dasilva MD [address], [place], [address] , [employer] 4 10:14:44 Mammograph y abnormal 064853711 Active 2023 ERICK Fam [address], [place], [address] , [employer] 4 16:45:14 Skin lesion 38013154 Active 2023 ERICK Santos [address], [place], [address] , [employer] 4 10:14:07 Memory impairment 098375711 Active 2023 ERICK Fam [address], [place], [address] , [employer] [facility] 4 10:13:58 Abnormal gait due to impairment of balance 066187560 Active 2023 ERICK Fam [address], [place], [address] , [facility] [employer] [facility] [employer] [facility] 4 10:14:13 Nausea 463386332 Active 2023 ERICK Fam [address], [place], [address] , [facility] [employer] [facility] 4 10:19:01 Injury of left foot 3562693258478 9108 Active 2024 ERICK Fam [address], [place], [address] , [employer] [facility] 5 11:47:40 Pain in left foot 8706209803490 07 Active 2024 ERICK Fam [address], [place], [address] , [employer] 5 11:49:22 Problem Notes None recorded. Procedures Surgical History Date Name Laterality Status Provider Name and Address Organization Details Recorded Time 3 Medicare Wellness CPT Code, subsequent completed Jacqueline Espinal CMA MD [employer] [facility] 11/18/2022 09:03:35 Imaging Results Imaging Date Name Status LastModified by Organiz [facility] Details LastModified Time 02/15/2023 LDCT, chest, for lung cancer screening completed [email or web address] [address], [address], 02/24/2023 09:39:52 03/22/2023 DEXA completed [email or web address] [address], [address], 10/14/2023 10:48:06 03/22/2023 DEXA completed [address], [address], 04/12/2023 14:32:46 05/13/2023 CT, chest, w/o contrast completed [email or web address] [place] [address] [address], [place], [address], 05/19/2023 17:54:59 12/27/2023 MAMMO, diagnostic, digital, bilateral completed [email or web address] [place] [address] [address], [place], [address], 12/28/2023 09:22:25 05/18/2024 MRI, brain + brain stem, w/o contrast completed [address], [place], [address], 05/18/2024 19:23:05 09/09/2024 XR, hip + pelvis, bilateral, 2 view completed [address] [address], [place], [address], 09/10/2024 09:21:21 Procedure Notes None recorded. Medical Equipment None [...] Updated DateTime 3 160.02 cm 32.4 kg/m2 70938.4 g 97.2 [degF] 87 /min 96 % 96 % 142 mm[Hg] 86 mm[Hg] Jacqueline pantoja CMA [place] [facility] 3 08:59:05 Date Recorded Body height Body mass index (BMI) Body weight Body temperature Heart rate Oxygen saturation Oxygen saturation in Arterial blood by Pulse oximetry Systolic blood pressure Diastolic blood pressure Provider Name and Address Organization Details Last Updated DateTime 3 160.02 cm 32.1 kg/m2 32043.2 2 g 97.2 [degF] 100 /min 95 % 95 % 130 mm[Hg] 70 mm[Hg] Aman Barry RN [facility] 3 09:53:32 Date Recorded Body height Body mass index (BMI) Body weight Body temperature Heart rate Oxygen saturation Oxygen saturation in Arterial blood by Pulse oximetry Systolic blood pressure Diastolic blood pressure Provider Name and Address Organization Details Last Updated DateTime 4 160.02 cm 33 kg/m2 79083.9 3 g 97.6 [degF] 104 /min 96 % 96 % 136 mm[Hg] 70 mm[Hg] Avelina Cheatham MA MD [employer] [facility] 4 10:08:12 Date Recorded Body height Body mass index (BMI) Body weight Body temperature Heart rate Oxygen saturation Oxygen saturation in Arterial blood by Pulse oximetry Systolic blood pressure Diastolic blood pressure Provider Name and Address Organization Details Last Updated DateTime 4 160.02 cm 32.4 kg/m2 31960.4 g 97.6 [degF] 92 /min 96 % 96 % 118 mm[Hg] 60 mm[Hg] Shira Colón RN [facility] 4 10:05:20 Date Recorded Body height Body mass index (BMI) Body weight Body temperature Oxygen saturation Oxygen saturation in Arterial blood by Pulse oximetry Heart rate Systolic blood pressure Diastolic blood pressure Provider Name and Address Organization Details Last Updated DateTime 4 160.02 cm 30.1 kg/m2 55606.7 g 97.8 [degF] 98 % 98 % 86 /min 134 mm[Hg] 78 mm[Hg] Aman Barry RN [facility] 4 10:03:49 Social History Question Answer Notes LastModified by Organizat ion Details LastModified Time Tobacco Smoking Status Former Smoker 1/2 ppd now started smoking in her teens 1 ppd until age 61 then quit 5 years, now 1/2 ppd Not Available [facility] 08/04/2022 12:46:33 Are You Blind Or Do You Have Difficulty Seeing? No [email or web address] Information not available 11/18/2022 What Is Your Level Of Caffeine Consumption? Moderate MIGRATION.[id number] Information not available 08/04/2022 In The 14 Days Before Symptom Onset, Have You Had Close Contact With A Laboratory-confir med COVID-19 While That Case Was Ill? No MIGRATION.69280 [id number] Information not available 08/04/2022 In The 14 Days Before Symptom Onset, Have You Had Close Contact With A Person Who Is Under Investigation For COVID-19 While That Person Was Ill? No MIGRATION.62611 [id number] Information not available 08/04/2022 Are You Deaf Or Do You Have Serious Difficulty Hearing? No Information not available 11/18/2022 What Type Of Diet Are You Following? REGULAR MIGRATION.70187 80230 Information not available 08/04/2022 What Was The Date Of Your Most Recent Tobacco Screening? 11/04/2021 MIGRATION.27355 [id number] Information not available 08/04/2022 Have You Ever Been Counseled For Unhealthy Alcohol Use? No MIGRATION.15979 13845 Information not available 08/04/2022 Has Tobacco Cessation Counseling Been Provided? No MIGRATION.76952 34602 Information not available 08/04/2022 Have You Recently Traveled Abroad? No MIGRATION.87279 50924 Information not available 08/04/2022 Do You Have Any Dietary Restrictions? No MIGRATION.56352 70513 Information not available 08/04/2022 Sex: Unknown Functional Status Question Answer Note LastModified by Organizat ion Details LastModified Time Do you use any illicit or recreational drugs? No MIGRATION.814001 9481 Information not available 08/04/2022 Do you or have you ever used any other forms of tobacco or nicotine? No MIGRATION.835914 4611 Information not available 08/04/2022 What is your level of alcohol consumption? Occasional MIGRATION.322720 6661 Information not available 08/04/2022 Do you have difficulty walking or climbing stairs? No arthritis [email or web address] Information not available 11/18/2022 Do you have transportation difficulties? No [email or web address] Information not available 11/18/2022 Are you able to walk? YESWOREST [email or web address] Information not available 11/18/2022 Do you have difficulty doing errands alone? No [email or web address] Information not available 11/18/2022 Are you able to care for yourself? Yes [email or web address] Information n ot available 11/18/2022 Do you have difficulty dressing or bathing? No [email or web address] Information not available 11/18/2022 What is your exercise level? None MIGRATION.362373 7751 Information not available 08/04/2022 Mental Status Question Answer Note LastModified by Organization D etails LastModified Time Do you have difficulty concentrating, remembering or making decisions? No [email or web address] Information no t available 11/18/2022 Family History Relationship Description Onset Age of this Age Resolved Age Notes LastModified by Organization Details LastModified Time Maternal Grandmother Diabetes mellitus MIGRATION.080 [id number] Not available 08/04/2022 12:46:37 Mother Malignant tumor of stomach MIGRATION.795 [id number] Not available 08/04/2022 12:46:37 Sister Malignant tumor of breast MIGRATION.065 [id number] Not available 08/04/2022 12:46:37 Medical History Condition Response ARTHRITIS Y HEPATITIS / LIVER DISEASE Y LUNG DISEASE/DISORDER Y Gynecological HistoryNo gynecological history recorded. Obstetrics History GPAL:G 0 P 0 0 0 0 Immunizations Vaccine Type Date Status Note Provider Nam e and Address Organization Details Recorded Time Influenza, high-dose, quadrivalent, PF 02/23/2022 completed Jacqueline Espinal CMA null, [place] [facility] 12/24/2022 08:59:32 Past Encounters Encounter ID Performer Location Encounter Start Date Encounter Closed Date Diagnosis/Indication Diagnosis SNOMED-CT Code Diagnosis ICD10 Code Diagnosis Note [id number] Jacklyn Dasilva MD [facility] Primary [place] [address] [facility] [address] [place] [address] 11/04/2021 00:00:00 11/04/2021 11:20:55 [id number] Jacklyn Dasilva MD [facility] Primary Care [place] [address] [place] [address] 12/02/2021 00:00:00 12/03/2021 08:11:14 [id number] Jacklyn Dasilva MD [facility] Primary Care [facility] [address] [facility] [address] [place] [address] 02/23/2022 00:00:00 02/23/2022 15:13:00 [id number] Jacklyn Dasilva MD [facility] Primary Care [facility] [address] [facility] [address] [place] [address] 04/27/2022 00:00:00 05/04/2022 08:11:54 [id number] Neal Guerra MD [facility] [place] [address] [place] [address] 07/06/2022 00:00:00 07/06/2022 15:46:57 [id number] Jacklyn Dasilva MD [facility] Primary Care [address] [place] [address] 07/27/2022 00:00:00 08/02/2022 14:01:14 [id number] Neal Guerra MD [facility] [place] [address] [place] [address] 08/24/2022 12:08:09 08/24/2022 12:42:02 Pain of right wrist 8250278943 01863 M25.531 Carpal pascual yadi syndrome of right wrist 3721434399 69073 G56.01 patient has failed conservati ve treatment for carpal tunnel she understand s the risks the benefits alternativ es and wishes to proceed with surgery due to the nocturnal paresthesi as than the numbing and tingling off and on throughout the day to the right hand [id number] Neal Guerra MD [facility] [place] [address] [place] [address] 10/12/2022 14:13:09 10/12/2022 15:45:30 Pain of right wrist 5738342878 20949 M25.531 Bilateral carpal tunnel syndrome 1572648188 1070863 G56.01 remove the sutures today patient can work on nerve and tendon glides we will see her back in 2 months for follow-up [id number] GUANAKITO Morales [facility] Primary Care [address] [place] [address] 11/18/2022 08:52:45 11/18/2022 10:09:38 Adult health examination 038978540 Z00.01 Medicar e Wellness Exam--C ontinue current [...] date--Tdap up to date Screening for disorder 767738703 Z13.9 Screening mammography 24 872196 Z12.31 Mammogram wnl (07/28/22) Chronic ob structive pulmonary disease 71051486 J44.9 Chronic, stableEnco uraged pt to remain non-smoker . Discussed progressiv e nature of COPD at length. Encouraged proper breathing techniques . Advised compliance with, nebulizer and inhaled medication s as directed. Encouraged patient to avoid cigarette smoke, allergens, and environmen jessica pollutants . Advised HVAC filters be changed seasonally as well. Osteoporosis 15435780 M8 1.0 Chronic, status unknownPt due for repeat DEXA scan.Jeanmarie nue alendronat e 70mg weekly Tobacco user 622306947 Z 72.0 Smoker starting in teens, quit [...] needed in the future. Rheumatoid arthritis 698 95566 M06.9 ChronicRF >120.0 (11/04/21)AN A positive 1: 160 (11/04/21)Kel fournier scheduled appt with neda dolan in January.Con tinue with Celebrex 400mg daily. Ok to add in Tylenol per package instructio ns. Will give triamcinol one injection in office today.Pt declines oral steroids b/c she would have to stop celebrex. Screening for malignant neoplasm of colon 483810766 Z12.11 Mood disorder 06301171 F 39 Chronic, stableEnco uraged pt to consider counseling . Denies any SI/HI at this time. Continue bupropion XL 300mg daily. Pt to stop medication and be seen if s/e develop. [id number] Jacklyn Dasilva MD [facility] Primary Care [address] [place] [address] 12/24/2022 08:52:24 12/24/2022 09:18:56 Prediabetes 712146177 R73.03 A1c was 6.7, no previous number [...] possibly trying GLP-1 if no improvemen t [id number] Jacklyn Dasilva MD [facility] Primary Care [address] [place] [address] 03/28/2023 09:47:41 03/28/2023 10:40:30 Prediabetes 884016496 R73.03 A1c was 6.7, no previous number [...] down 3 pounds, tolerating metforminc heck a1c [id number] Jacklyn Dasilva MD [facility] Primary Care [facility] [address] [facility] [address] [place] [address] 09/26/2023 09:57:09 09/26/2023 10:23:42 Diabetes mellitus 90496763 E11.9 ok to d/c metformino k to begin ozempic, plan to titrate up q4 weeks as toleratedf /u in 3 months [id number] GUANAKITO Santos-Ephraim [facility] Primary Care [facility] [address] [facility] [address] [place] [address] 12/27/2023 09:58:15 12/27/2023 11:02:39 Diabetes mellitus [id number] E11.9 -was on ozempic for a couple months, but has not taken for the last 3 weeks-note s A1c being-labs obtained Dietary yris infante surveillance [id number] Z71.3 Skin lesion [id number] L98 .9 [id number] GUANAKITO Fam-Ephraim [facility] Primary Care [facility] [address] [facility] [address] [place] [address] 03/22/2024 09:49:59 03/22/2024 10:52:27 Memory impairment [id number] R41.[address] as listed below.Neur ology referral placed due to worsening memory impairment and family history of dementia. Family his tory of dementia [id number] Z81.8 Neurologis t referral placed as listed above. Abnormal g ait due to impairment of balance [id number] R26.89 Prediabetes [id number] R7 3.03 (12/2023) A1c is 6.0 Nausea [id number] R11.0 Will treat as listed below.Brittany ent [...] Valdez Member ID Guarantor Name 12/24/2022 1 [facility] (MEDICARE REPLACEMENT/A DVANTAGE - HMO) [id number] Maria Luz Sims [id number] Maria Luz Sims 03/28/2023 1 [facility] (MEDICARE REPLACEMENT/A DVANTAGE - HMO) [id number] Maria Luz Sims [id number] Maria Luz Sims 09/26/2023 1 [employer] (MEDICARE REPLACEMENT HMO) [id number] Maria uLz Sims [id number] Maria Luz Sims 12/27/2023 1 [employer] (MEDICARE REPLACEMENT HMO) [id number] L Maria Luz Sims [id number] Maria Luz Sims 03/22/2024 1 [employer] (MEDICARE REPLACEMENT HMO) [id number] L Maria Luz Sims [id number] Maria Luz Sims Notes Date Note Type Note Provider Name [...] any glucose in urine. Jacklyn Dasilva MD [address], [place], [address], [employer] 12/24/2022 09:20:40 03/28/2023 text/html here to f/u [...] Dasilva MD [address], [place], [address], [employer] 03/28/2023 10:29:47 09/26/2023 text/html here to f/u [...] Dasilva MD [address], [place], [address], [employer] 10/23/2023 16:28:50 12/27/2023 text/html Pt is here for f/u ERICK Woods [address], [place], [address], [employer] 12/27/2023 10:25:35 03/22/2024 text/html Patient is a [...] to my stomach all the time . Laboratory Engineer started her on Hydroxychloroquine shortly before the nausea started. Patient denies chest pain and shortness of breath. ERICK Fam [address], [place], [address], [employer] 03/22/2024 22:03:47 OBGyn Episode No OBEpisode recorded.
--- OUTSIDE RECORDS SUMMARY | 2024-10-16 10:05 | XMS_ITS | Referral Summary ---
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 [facility] Endocrinology Metabolism and Lipid [address] [facility] 5[address] [place] [address] Rheumatoid arthritis, involving unspecified site, unspecified whether rheumatoid factor present (HCC); High risk medication use 08/08/2024 11:00 AM [employer]ATE [employer]NER[employer]IPS Office Visit [facility] Rheumatology [address] [place] [address] Marti Gaspar MD Rheumatoid arthritis, [...] NEEDED FOR SHORTNESS OF BREATH OR WHEEZING Active metFORMIN XR (GLUCOPHAGE XR) 500 mg [...] 24 hr Take 15 mg by mouth forest resource specialist before breakfast 30 tablet 6 Active Additional Information Patient not taking.Reported on 08/08/2024 Ozempic 0.25 mg or 0.5 mg (2 mg/3 mL) pen injector injection Active ondansetron ODT (ZOFRAN-ODT) 4 mg disintegrating [...] on file Legal Sex Female 8:25 AM VP [employer]PORATE [employer] Gender Identity Not on file Sexual Orientation Not on file Last Filed Vital Signs Vital Sign Reading Time Taken Comments Blood Pressure 131/81 08/08/2024 11:03 AM [employer]ATE [employer]IPS Pulse 93 08/08/2024 11:03 AM [employer] Temperature 36.7 C (98.1 F) 09/07/2023 9:51 AM CDT Respiratory Rate - - Oxygen Saturation 96% 02/08/2024 10:49 AM CDT Inhaled Oxygen Concentration - - Weight 79.8 kg (176 lb) 08/08/2024 11:03 AM [employer] Height 160 cm (5' 3 ) 08/08/2024 11:03 AM [employer]NER[employer]IPS Body Mass Index 31.18 08/08/2024 11:03 AM [employer] Plan of Treatment Not on file Procedures Procedure Name Priority Date/Time Associated Diagnosis Comments COMPREHENSIVE METABOLIC PANEL Routine 08/08/2024 11:33 AM [employer] Rheumatoid arthritis, involving unspecified site, unspecified whether rheumatoid factor present (HCC) High risk medication use CBC WITH AUTO DIFFERENTIAL Routine 08/08/2024 11:33 AM [employer]IPS Rheumatoid arthritis, involving unspecified site, unspecified whether rheumatoid factor present (HCC) High risk medication use HEPATITIS C RNA, QUANTITATIVE, PCR Routine 02/02/2023 1:01 PM CDT Rheumatoid arthritis, involving unspecified site, unspecified whether rheumatoid factor present (HCC) Vitamin D deficiency from Last 3 Months or Most Recently Relevant to Health Maintenance Results * (ABNORMAL) CBC with auto differential (08/08/2024 11:33 AM [employer]) White Blood Count 6.4 3.6 - 11.2 [...] - [facility] Blood 08/08/2024 11:3 3 AM [employer] 08/08/2024 12:47 PM [employer] us Marti Gaspar MD LAB BLOOD ORDERABLES Final Result [facility] * (ABNORMAL) Comprehensive metabolic panel (08/08/2024 11:33 AM [employer]) Pathologist [facility] Total Protein 7.5 6.1 - 8.4 g/dL [...] - [facility] Blood 08/08/2024 11:3 3 AM [employer]IPS 08/08/2024 12:47 PM [employer] Marti Gaspar MD LAB BLOOD ORDERABLES Final Result [facility] * Hepatitis C (HCV) RNA PCR, quantitative Blood (02/02/2023 1:01 PM CDT) HCV RNA result Not Detected [facility] Comment: The quantifiable range of this assay is 15 IU/mL to 100,000,000 IU/mL (1.18 log IU/mL to 8.00 log IU/mL). Testing was performed by the [facility] HCV Test ([employer] Testing performed at [facility] Current Interpretive Data was last revised on 2021 Blood 02/02/2023 1:01 PM CDT 02/02/2023 1:22 PM CDT us Marti Gaspar MD LAB MICROBIOLOGY - GENERAL ORDERABLES Final Result [facility] Department [place] [address] [facility] from Last 3 Months or Most Recently Relevant to Health Maintenance Insurance [facility] MEDICARE [facility] AET MEDICARE GOLD Care Teams Lockstitch Coat Joiner Relationship Specialty Start Date End Date Donna Her NP [address] [address] PCP - General Family Medicine 04/03/24
--- OUTSIDE RECORDS SUMMARY | 2024-10-16 10:05 | XMS_ITS | CONTINUITY OF CARE DOCUMENT ---
Author Name pau mai Address Unknown Organization [facility] Address [address] [place] [address] [address] [place] [address] Phone [phone] Care Team Providers Care Warehouse Associate Driver Name Role Phone pau mai Unavailable Unavailable INSURANCE PROVIDERS Payer name Policy type / Coverage type Jhonathan red libertarian ID [id number] ACCESS/PPO Other [id number]
== END 2024-10-16 09:53 | disposition home or self-care (01) ==
PROVIDERS: PCP Nurse Practitioner Family; Visit Provider Nurse Practitioner Family
DX: S99.922A Unspecified injury of left foot, initial encounter (principal); X58.XXXA Exposure to other specified factors, initial encounter
CPT/HCPCS: 73630

== ENCOUNTER 2025-01-30 13:47 | Outpatient (CLI) | payer MEDICARE, SELFPAY ==
--- OUTSIDE RECORDS SUMMARY | 2002-07-13 03:15 | XMS_ITS | Continuity of Care Document ---
Author Organization [facility] Address [id number] [place] [address] [address] [place] [address] Phone Care Team Providers Care Kaiako Kohanga Reo Name Role Phone Rosa Isela, Jose Unavailable Unavailable Advance Directives Directive Yes / No Effective Date File Name No Information Encounters Encounter Description Practice Location Reason(s) For Visit Diagnoses Date Provider Providers Copied on Encounter [facility], [id number], [place], [place], [id number], [place] tel:[phone] SEC [facility] No Information Jul-0 7-200 3 Doisy Edward. [address] , [address], [place], [address], [place]. tel:[phone] Family History Family Member Type Diagnosis Age At Onset No Information Payers Payer name Insurance type Covered green party ID Authoriza tion(s) No Information Social History Type Description Quantity Date Captured Comments Sex Female Smoking Status No Information Chief Complaint And Reason For Visit No Information Reason For Referral Reason For Referral No Information History Of Present Illness Encounter Date Complaint History Of Prese nt Illness No Information Functional Status Date Functional Assessmen t No Information Instructions Date Instruction Additional Infor mation No Information Assessments Type Assessment Date No Information Patient Care Teams Name Effective Dates (start - stop) Status Members No Information
--- NOTE | ~2025-01-30 | MM_ITS ---
EXAMINATION: MM screening [facility] BI w birgit HISTORY: Screening TECHNIQUE: Craniocaudal and mediolateral oblique 3-D tomosynthesis images were obtained and synthetic 2-D images were generated. CAD analysis was submitted and interpreted. COMPARISON: Comparison to multiple prior studies sequentially, with oldest reviewed study dated 03/13/2019. BREAST PARENCHYMAL COMPOSITION: The breasts are heterogeneously dense, which may obscure small masses. FINDINGS: There is no evidence of suspicious mass, calcification, or architectural distortion to suggest malignancy in either breast. Scattered benign-appearing calcifications are present. IMPRESSION: 1. No mammographic evidence of malignancy. 2. Recommend routine screening mammography in one year. BI-RADS Category 2: Benign finding(s). Reviewed, dictated and finalized at location B.
--- OUTSIDE RECORDS SUMMARY | 2025-01-30 13:55 | XMS_ITS | Clinical Summary ---
Author Organization [facility] al Address [address] [place] [address] Care Team Providers Care Manager Apple Name Role Phone Donna Her NP Primary [...] 24 hr Take 15 mg by mouth scourer before breakfast 30 tablet 6 09/20/19 24 Active Additional Information Patient not taking.Reported on 08/08/2024 Ozempic 0.25 mg or 0.5 mg (2 mg/3 mL) pen injector injection 11/24/19 24 Active ondansetron ODT (ZOFRAN-ODT) 4 mg disintegrating tablet 03/22/20 24 Active methotrexate 2.5 mg tablet TAKE 8 TABLETS BY MOUTH ONCE A WEEK 32 tablet 3 10/10/19 25 Active hydroxychloroquine (PLAQUENIL) 200 mg tablet Take 2 tablets by mouth once daily 60 tablet 3 12/29/19 25 Active folic acid (FOLVITE) 1 mg tablet Take 2 tablets by mouth once daily 180 tablet 1 12/29/19 25 Active Active Problems Problem Noted Date [...] Medical History Date Comments Emphysema of lung Asthma Dry mouth Fatigue Rheumatoid arthritis (HCC) [...] on file Legal Sex Female 8:25 AM 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 Gender Identity Not on file Sexual Orientation Not on file Obstetrics History Last Filed Vital Signs Vital Sign Reading Time Taken Comments Blood Pressure 131/81 08/08/2024 11:03 AM 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 Pulse 93 08/08/2024 11:03 AM 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 Temperature 36.7 C (98.1 F) 09/07/2023 9:51 AM CDT Respiratory Rate - - Oxygen Saturation 96% 02/08/2024 10:49 AM CDT Inhaled Oxygen Concentration - - Weight 79.8 kg (176 lb) 08/08/2024 11:03 AM 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 Height 160 cm (5' 3) 08/08/2024 11:03 AM 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 Body Mass Index 31.18 08/08/2024 11:03 AM 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 Plan of Treatment Health Maintenance Due Date Last Done Comments Breast Cancer Screening-Mammogram 1955 Colon Cancer Screening-Colonoscopy 1955 Depression Screening 1955 Fall Risk Assessment 1955 Osteoporosis Screening-Bone Density Scan 1955 DTaP/Tdap/Td Vaccine (1 - Tdap) 1964 Hepatitis B Screening 1971 Well Visit 65+ 2018 Covid-19 Vaccine (4 - 2023-2 5 season) 2024 04/13/2021, 08/04/2020, 07/07/2020 Influenza Vaccine (#1) 2025 3, 02/23/2022, 03/07/2020, Additional history exists Zoster Vaccine Completed 07/10/2019, 03/07, 03/12/2017 Pneumococcal vaccine 65+ Completed 10/24/2019, 09/04 Hepatitis C Screening Completed 02/02/2023, 023 Procedures Procedure Name Priority Date/Time Associated Diagnosis Comments HEPATITIS C RNA, QUANTITATIVE, PCR Routine 02/02/2023 1:01 PM CDT Rheumatoid arthritis, involving unspecified site, unspecified whether rheumatoid factor present (HCC) Vitamin D deficiency from Last 3 Months or Most Recently Relevant to Health Maintenance Results * Hepatitis C (HCV) RNA PCR, quantitative Blood (02/02/2023 1:01 PM CDT) Pathologist [facility] HCV RNA result Not Detected [facility] Comment: The quantifiable range of this assay is 15 IU/mL to 100,000,000 IU/mL (1.18 log IU/mL to 8.00 log IU/mL). Testing was performed by the [facility] HCV Test ([employer] Testing performed at [facility] Current Interpretive Data was last revised on 2021 Blood 02/02/2023 1:01 PM CDT 02/02/2023 1:22 PM CDT us Marti Gaspar MD LAB MICROBIOLOGY - GENERAL ORDERABLES Final Result [facility] [address] [facility] Department [place] [address] [facility] from Last 3 Months or Most Recently Relevant to Health Maintenance Insurance [employer] MEDICARE GOLD [employer] MEDICARE GOLD Care Teams Manager Apple Relationship Specialty Start Date End Date Donna Her NP [address] [place] [address] PCP - General Family Medicine 04/03/24
== END 2025-01-30 13:48 | disposition home or self-care (01) ==
LOC: ANHFOHIMG 13:52
PROVIDERS: PCP Nurse Practitioner Family; Visit Provider Nurse Practitioner Family
DX: Z12.31 Encounter for screening mammogram for malignant neoplasm of breast (principal)
CPT/HCPCS: 77063; 77067